=== PATIENT | male | born 1945 | race Caucasian/White ===

== ENCOUNTER 2018-11-20 13:57 | Inpatient (IN) | payer MEDICARE, OTHER ==
[2018-11-20] MEDS ORDERED: HYDROmorphone 0.5 MG/0.5 ML Syringe IVPUSH ONE ×2 (14:41→15:31)
[2018-11-20] MEDS ORDERED: Ondansetron 4 MG/2 ML SDV IVPUSH ONE (14:41)
[2018-11-20] MEDS ORDERED: Sodium Chloride 0.9% 1,000 ML IV SCH (14:45)
--- NOTE | 2018-11-20 14:51 | EDM.PDOC ---
ED HPI GENERAL MEDICAL PROBLEM - General Chief Complaint: Gastrointestinal Problem Stated Complaint: BOWEL PROBLEM Time Seen by Provider: 11/20/18 14:30 Source of Information: Reports: Patient History Limitations: Reports: No Limitations - History of Present Illness INITIAL COMMENTS - FREE TEXT/NARRATIVE: 72-year-old male who has had lower abdominal pain, nausea and vomiting for the past 3 days. He went into the clinic on Saturday and had x-rays, reassured but he is much worse over the past 24 hours. Today he has intense pain, was unable to drive and had a neighbor bring him in. His pain is lower abdominal, worse with movement and he is unable to get comfortable. Denies any dysuria. Also some persistent nausea and vomiting. I reviewed his clinic records, he did have a fever when he was in 2 days ago, he now has chills and malaise. Onset: Gradual Duration: Day(s): (3-4 days of symptoms) Location: Reports: Abdomen Associated Symptoms: Reports: Fever/Chills, Loss of Appetite, Malaise, Nausea/ Vomiting, Other (Loose stools) Abdominal Pain Score (Numeric/FACES): 10 - Related Data Allergies Allergy/AdvReac Type Severity Reaction Status Date / Time ciprofloxacin [From Cipro] Allergy Other Verified 11/20/18 14:18 levofloxacin Allergy Other Verified 11/20/18 14:18 Home Meds: Home Meds Atenolol 100 mg PO DAILY 12/03/17 [History] atorvaSTATin [Lipitor] 100 mg PO BEDTIME 12/03/17 [History] Folic Acid 1 mg PO DAILY 11/18/18 [History] Methotrexate Sodium [Methotrexate] 10 mg PO ASDIRECTED 11/18/18 [History] predniSONE [Prednisone] 5 mg PO DAILY 11/18/18 [History] Past Medical History HEENT History: Reports: Hard of Hearing Cardiovascular History: Reports: Hypertension Musculoskeletal History: Reports: Arthritis Psychiatric History: Reports: None Endocrine/Metabolic History: Reports: None Immunologic History: Reports: None Oncologic (Cancer) History: Reports: Prostate - Past Surgical History Cardiovascular Surgical History: Reports: None Endocrine Surgical History: Reports: Thyroidectomy Neurological Surgical History: Reports: Lumbar Spine Musculoskeletal Surgical History: Reports: Shoulder Surgery Social & Family History - Tobacco Use Smoking Status *Q: Never Smoker Second Hand Smoke Exposure: No - Caffeine Use Caffeine Use: Reports: Coffee - Recreational Drug Use Recreational Drug Use: No ED ROS GENERAL - Review of Systems Review Of Systems: See Below Constitutional: Reports: Fever, Chills, Malaise, Decreased Appetite HEENT: Reports: No Symptoms Respiratory: Denies: Shortness of Breath Cardiovascular: Denies: Chest Pain, Palpitations GI/Abdominal: Reports: Abdominal Pain, Diarrhea, Decreased Appetite, Nausea, Vomiting : Reports: No Symptoms Skin: Reports: No Symptoms Neurological: Denies: Headache Psychiatric: Denies: Anxiety ED EXAM, GI/ABD - Physical Exam Exam: See Below Exam Limited By: No Limitations General Appearance: Alert, Moderate Distress (Very uncomfortable, lying on his right side with his hips flexed and holding his abdomen) Eyes: Bilateral: Normal Appearance (No jaundice) Respiratory/Chest: No Respiratory Distress, Lungs Clear Cardiovascular: Regular Rate, Rhythm. No: Tachycardia GI/Abdominal Exam: Other (Very tender across the lower abdomen with guarding and rebound tenderness especially in the left lower quadrant) Extremities: Normal Inspection Neurological: Alert, Oriented Psychiatric: Anxious Skin Exam: Warm, Dry Course - Vital Signs Last Recorded V/S: Last Vital Signs Temp 96.0 F 11/21/18 04:00 Pulse 76 11/21/18 05:59 Resp 23 H 11/21/18 05:59 BP 115/80 11/21/18 05:59 Pulse Ox 97 11/21/18 05:59 - Orders/Labs/Meds Orders: Active Orders 24 hr Category Date Time Status Ambulate [RC] ASDIRECTED Care 11/20/18 18:56 Active Dorsiflex/Plantar flex x 10 [RC] QSHIFT Care 11/20/18 18:56 Active Drain Management [RC] Q6H Care 11/20/18 18:56 Active Head of Bed Elevation [RC] Q1HWA Care 11/20/18 18:56 Active Intake and Output [RC] Q2H Care 11/20/18 18:56 Active Notify Provider [RC] PRN Care 11/20/18 18:56 Active Oxygen Therapy [RC] ASDIRECTED Care 11/20/18 18:56 Active Pneumonia Education [RC] UPON Care 11/20/18 18:56 Active RT Aerosol Therapy [RC] ASDIRECTED Care 11/20/18 19:00 Active RT Incentive Spirometry [RC] Q1HWA Care 11/20/18 18:56 Active Turn, Cough, Deep Breathe [RC] Q1HWA Care 11/20/18 18:56 Active Up to Chair [RC] TIDMEALS Care 11/20/18 18:56 Active Vital Signs [RC] Q2H Care 11/20/18 18:56 Active Respiratory Care Assess and Treatment [CONS] Routine Cons 11/20/18 18:56 Active Full Liquid Diet [DIET] Diet 11/20/18 Breakfast Ordered CLOSTRIDIUM DIFFICILE BY PCR [RM] Stat Lab 11/20/18 15:08 Results CULTURE ANAEROBIC [RM] Routine Lab 11/20/18 18:49 Received CULTURE STOOL + SHIGATOX [RM] Stat Lab 11/20/18 15:08 Results CULTURE WOUND + SMEAR [RM] Routine Lab 11/20/18 18:49 Results OVA + PARASITE EXAM Stat Lab 11/20/18 15:07 Received Albuterol/Ipratropium [DuoNeb 3.0-0.5 MG/3 ML] Med 11/20/18 18:56 Active 3 ml NEB Q6H PRN Alvimopan [Entereg] Med 11/20/18 20:00 Active 12 mg PO Q12H Celecoxib [CeleBREX] Med 11/20/18 19:00 Active 200 mg PO DAILY Enoxaparin [Lovenox] Med 11/21/18 09:00 Active 40 mg SUBCUT Q12H Gabapentin [Neurontin] Med 11/20/18 21:00 Active 300 mg PO TID Ondansetron [Zofran ODT] Med 11/20/18 18:56 Active 4 mg PO Q6H PRN diphenhydrAMINE [Benadryl] Med 11/20/18 18:56 Active 25 mg IVPUSH Q4H PRN Abdominal Binder [OM.PC] Routine Oth 11/20/18 18:56 Ordered Isolation [COMM] Stat Oth 11/20/18 15:04 Ordered Oral Care [OM.PC] BID Oth 11/20/18 19:00 Ordered Oral Care [OM.PC] BID Oth 11/21/18 19:00 Ordered Sequential Compression Device [OM.PC] Routine Oth 11/20/18 18:56 Ordered Specialty Bed [OM.PC] Routine Oth 11/20/18 18:56 Ordered Resuscitation Status Routine Resus Stat 11/20/18 18:56 Ordered Medication Orders Albuterol/Ipratropium (Duoneb 3.0-0.5 Mg/3 Ml) 3 ml NEB Q6H PRN PRN Reason: Wheezing Alvimopan (Entereg) 12 mg PO Q12H [facility] Stop: 11/27/18 08:01 Last Admin: 11/20/18 21:18 Dose: 12 mg Celecoxib (Celebrex) 200 mg PO DAILY [facility] Last Admin: 11/20/18 21:17 Dose: 200 mg Diphenhydramine HCl (Benadryl) 25 mg IVPUSH Q4H PRN PRN Reason: Nausea Enoxaparin Sodium (Lovenox) 40 mg SUBCUT Q12H [facility] Fentanyl Citrate (Fentanyl In Ns 20 Mcg/Ml 30 Ml [employer]) 0 mcg IV ASDIRECTED PRN; Protocol PRN Reason: Pain Last Admin: 11/20/18 20:33 Dose: 600 mcg Gabapentin (Neurontin) 300 mg PO TID [facility] Last Admin: 11/20/18 21:18 Dose: 300 mg Sodium Chloride (Normal Saline) 1,000 mls @ 125 mls/hr IV ASDIRECTED [facility] Last Admin: 11/21/18 00:41 Dose: 125 mls/hr Sodium Chloride (Normal Saline) 1,000 mls @ 250 mls/hr IV ASDIRECTED PRN PRN Reason: urine output <50 mls over 2 hr Last Admin: 11/21/18 05:50 Dose: 250 mls/hr Infusion: 11/21/18 05:50 Dose: 250 mls/hr Admin: 11/21/18 02:58 Dose: 250 mls/hr Infusion: 11/21/18 02:58 Dose: 250 mls/hr Admin: 11/21/18 01:03 Dose: 250 mls/hr Infusion: 11/21/18 01:03 Dose: 250 mls/hr Admin: 11/20/18 22:42 Dose: 250 mls/hr Infusion: 11/20/18 22:42 Dose: 250 mls/hr Admin: 11/20/18 21:40 Dose: 250 mls/hr Piperacillin/Tazobactam/ (Dextrose 3.375 gm/ Premix) 50 mls @ 100 mls/hr IV Q6H [facility] Naloxone HCl (Narcan) 0.1 mg IV ASDIRECTED PRN PRN Reason: decreased respiratory rate Scopolamine Patch (Check) 1 each TOP DAILY CARLY Ondansetron HCl (Zofran Odt) 4 mg PO Q6H PRN PRN Reason: Nausea/Vomiting Labs: Laboratory Tests 11/20/18 11/20/18 11/20/18 Range/Units 14:41 14:41 14:41 WBC 14.0 H (4.5-11.0) K/uL RBC 4.13 L (4.30-5.90) M/uL Hgb 13.6 (12.0-15.0) g/dL Hct 39.6 L (40.0-54.0) % MCV 96 (80-98) fL MCH 33 H (27-31) pg MCHC 34 (32-36) % Plt Count 260 (150-400) K/uL Neut % (Auto) 89 H (36-66) % Lymph % (Auto) 5 L (24-44) % Lucas % (Auto) 5 (2-6) % Eos % (Auto) 0 L (2-4) % Baso % (Auto) 0 (0-1) % Sodium 137 L (140-148) mmol/L Potassium 3.1 L (3.6-5.2) mmol/L Chloride 100 (100-108) mmol/L Carbon Dioxide 22 (21-32) mmol/L Anion Gap 18.1 H (5.0-14.0) mmol/L BUN 13 (7-18) mg/dL Creatinine 1.3 (0.8-1.3) mg/dL Est Cr Clr Drug Dosing 49.85 mL/min Estimated GFR (MDRD) 54 L (>60) Glucose 164 H (74-106) mg/dL Lactic Acid 2.6 H (0.4-2.0) mmol/L Calcium 8.6 (8.5-10.1) mg/dL Total Bilirubin 1.2 H (0.2-1.0) mg/dL AST 20 (15-37) U/L ALT 21 (12-78) U/L Alkaline Phosphatase 79 (46-116) U/L Total Protein 6.3 L (6.4-8.2) g/dL Albumin 2.7 L (3.4-5.0) g/dL Globulin 3.6 H (2.3-3.5) g/dL Albumin/Globulin Ratio 0.8 L (1.2-2.2) Meds: Medications Generic Name Dose Route Start Last Admin Trade Name Freq PRN Reason Stop Dose Admin Albuterol/Ipratropium 3 ml 11/20/18 18:56 Duoneb 3.0-0.5 Mg/3 Ml NEB Q6H PRN Wheezing Alvimopan 12 mg 11/20/18 20:00 11/20/18 21:18 Entereg PO 11/27/18 08:01 12 mg Q12H CARLY Administration Celecoxib 200 mg 11/20/18 19:00 11/20/18 21:17 Celebrex PO 200 mg DAILY CARLY Administration Diphenhydramine HCl 25 mg 11/20/18 18:56 Benadryl IVPUSH Q4H PRN Nausea Enoxaparin Sodium 40 mg 11/21/18 09:00 Lovenox SUBCUT Q12H CARLY Fentanyl Citrate 0 mcg 11/20/18 20:12 11/20/18 20:33 Fentanyl In Ns 20 Mcg/Ml 30 Ml [employer] IV 600 mcg ASDIRECTED PRN Administration Pain Protocol Gabapentin 300 mg 11/20/18 21:00 11/20/18 21:18 Neurontin PO 300 mg TID CARLY Administration Sodium Chloride 1,000 mls @ 125 mls/hr 11/20/18 20:15 11/21/18 00:41 Normal Saline IV 125 mls/hr ASDIRECTED CARLY Administration Sodium Chloride 1,000 mls @ 250 mls/hr 11/20/18 21:30 11/21/18 05:50 Normal Saline IV 250 mls/hr ASDIRECTED PRN Administration urine output <50 mls over 2 hr Piperacillin/Tazobactam/ 50 mls @ 100 mls/hr 11/21/18 08:00 Dextrose 3.375 gm/ Premix IV Q6H CARLY Naloxone HCl 0.1 mg 11/20/18 20:12 Narcan IV ASDIRECTED PRN decreased respiratory rate Scopolamine Patch 1 each 11/21/18 09:00 Check TOP DAILY CARLY Ondansetron HCl 4 mg 11/20/18 18:56 Zofran Odt PO Q6H PRN Nausea/Vomiting Discontinued Medications Generic Name Dose Route Start Last Admin Trade Name Jossq PRN Reason Stop Dose Admin Ropivacaine 36 ml/ 0 ml 11/20/18 17:00 11/20/18 17:30 Dexamethasone 8 mg/ NERVRT 80 syringe Epinephrine HCl 0.4 mg/ Sodium ASDIRECTED CARLY Administration Chloride 41.6 ml Dexamethasone Confirm 11/20/18 16:53 Dexamethasone Administered 11/20/18 16:54 Dose 4 mg .ROUTE .STK-MED ONE Fentanyl Confirm 11/20/18 16:54 Sublimaze Administered 11/20/18 16:55 Dose 250 mcg .ROUTE .STK-MED ONE Fentanyl Confirm 11/20/18 19:06 Sublimaze Administered 11/20/18 19:07 Dose 100 mcg .ROUTE .STK-MED ONE Glycopyrrolate Confirm 11/20/18 16:53 Robinul Administered 11/20/18 16:54 Dose 1 mg .ROUTE .STK-MED ONE Hydromorphone HCl 0.5 mg 11/20/18 14:41 11/20/18 14:59 Dilaudid IVPUSH 11/20/18 14:42 0.5 mg ONETIME ONE Administration Hydromorphone HCl 0.5 mg 11/20/18 15:31 11/20/18 15:36 Dilaudid IVPUSH 11/20/18 15:32 0.5 mg ONETIME ONE Administration Sodium Chloride 1,000 mls @ 1,000 mls/hr 11/20/18 14:45 11/20/18 15:00 Normal Saline IV 1,000 mls/hr ASDIRECTED CARLY Administration Ertapenem 1 gm/ Sodium 100 mls @ 200 mls/hr 11/20/18 15:45 11/20/18 15:51 Chloride IV 11/20/18 16:14 200 mls/hr ONETIME ONE Administration Sodium Chloride Confirm 11/20/18 17:55 Normal Saline Administered 11/20/18 17:56 Dose 10 mls @ as directed .ROUTE .STK-MED ONE Lactated Ringer's Confirm 11/20/18 17:57 Ringers, Lactated Administered 11/20/18 17:58 Dose 1,000 mls @ as directed .ROUTE .STK-MED ONE Piperacillin Sod/Tazobactam 50 mls @ 100 mls/hr 11/20/18 20:00 11/21/18 02:01 Sod 3.375 gm/ Sodium Chloride IV 100 mls/hr Q6H CARLY Administration Ketorolac Tromethamine Confirm 11/20/18 18:56 Toradol Administered 11/20/18 18:57 Dose 60 mg .ROUTE .STK-MED ONE Meropenem Confirm 11/20/18 17:55 Merrem Administered 11/20/18 17:56 Dose 500 mg .ROUTE .STK-MED ONE Neostigmine Methylsulfate Confirm 11/20/18 16:53 Neostigmine Administered 11/20/18 16:54 Dose 5 mg .ROUTE .STK-MED ONE Ondansetron HCl 4 mg 11/20/18 14:41 11/20/18 14:58 Zofran IVPUSH 11/20/18 14:42 4 mg ONETIME ONE Administration Ondansetron HCl Confirm 11/20/18 16:53 Zofran Administered 11/20/18 16:54 Dose 4 mg .ROUTE .STK-MED ONE Propofol Confirm 11/20/18 16:53 Diprivan 20 Ml Administered 11/20/18 16:54 Dose 200 mg .ROUTE .STK-MED ONE Rocuronium [place] Confirm 11/20/18 16:53 Zemuron Administered 11/20/18 16:54 Dose 50 mg .ROUTE .STK-MED ONE Rocuronium [place] Confirm 11/20/18 18:10 Zemuron Administered 11/20/18 18:11 Dose 50 mg .ROUTE .STK-MED ONE Scopolamine 1.5 mg 11/20/18 18:56 11/20/18 20:05 Transderm-Scop TOP 11/20/18 18:57 1.5 mg ONETIME ONE Administration Succinylcholine Chloride Confirm 11/20/18 16:53 Quelicin Administered 11/20/18 16:54 Dose 200 mg .ROUTE .STK-MED ONE - Re-Assessments/Exams Free Text/Narrative Re-Assessment/Exam: 11/20/18 14:50 An IV was started, patient will be hydrated with normal saline and a CBC CMP and lactic acid were obtained. This patient will need a CT of the abdomen to rule out diverticulitis or appendicitis. 11/20/18 16:26 White count was elevated, lactic acid mildly elevated and the CT the abdomen revealed a likely perforated diverticulitis. Surgery was consulted, Dr. Kay kindly came and saw the patient and will assess him for surgical excoriation. 1 g of Invanz was given IV. He also needed 2 doses of Dilaudid and 4 mg of IV Zofran for symptom control. Departure - Departure Time of Disposition: 17:00 Disposition: Admitted As Inpatient 64 Clinical Impression: Perforation of sigmoid colon due to diverticulitis - Discharge Information - My Orders Last 24 Hours: My Active Orders 11/20/18 15:04 Isolation [COMM] Stat 11/20/18 15:07 OVA + PARASITE EXAM Stat 11/20/18 15:08 CLOSTRIDIUM DIFFICILE BY PCR [RM] Stat CULTURE STOOL + SHIGATOX [RM] Stat - Assessment/Plan Last 24 Hours: My Active Orders 11/20/18 15:04 Isolation [COMM] Stat 11/20/18 15:07 OVA + PARASITE EXAM Stat 11/20/18 15:08 CLOSTRIDIUM DIFFICILE BY PCR [RM] Stat CULTURE STOOL + SHIGATOX [RM] Stat
[2018-11-20] MEDS ORDERED: Ertapenem 1 GM in Sodium Chloride 0.9% 100 ML IV ONE ×5 (15:30→15:45)
--- NOTE | 2018-11-20 15:58 | CRLCT ---
INDICATION: Severe lower abdominal pain TECHNIQUE: CT abdomen and pelvis without contrast. COMPARISON: None. FINDINGS: Lower chest: Unremarkable. Liver: Normal in size and attenuation. No masses. Gallbladder and bile ducts: No stones or inflammation. No biliary dilatation. Pancreas: Unremarkable. No mass or inflammation. Spleen: Normal in size. No masses. Adrenal glands: Normal in size. No nodules. Kidneys: Multiple small nonobstructive stones are present in each kidney. No hydronephrosis. GI tract: There is wall thickening and inflammation throughout the sigmoid colon with a relatively large amount of adjacent free air. Remainder of the GI tract is unremarkable. Normal appendix. Vasculature: Unremarkable. Lymph nodes: No lymphadenopathy. Abdominal wall/Omentum/Peritoneum: No mass or fluid collection. Pelvis: Status post prostatectomy. Unremarkable urinary bladder. Bones: Unremarkable for age. IMPRESSION: 1. Marked wall thickening and inflammation of the sigmoid colon with a large amount of free air. Perforated acute diverticulitis is suspected. No abscess. 2. Bilateral nonobstructive nephrolithiasis. Dictated by Austin Goldberg MD @ 11/20/2018 3:57:37 PM Please note that all CT scans at this facility use dose modulation, iterative reconstruction, and/or weight-based dosing when appropriate to reduce radiation dose to as low as reasonably achievable. Dictated by: Austin Goldberg MD @ 11/20/2018 15:57:43 (Electronically Signed)
[2018-11-20] MEDS ORDERED: Succinylcholine 200 MG/10 ML MDV ONE (16:53)
[2018-11-20] MEDS ORDERED: Ondansetron 4 MG/2 ML SDV ONE (16:53)
[2018-11-20] MEDS ORDERED: Rocuronium 50 MG/5 ML Vial ONE ×2 (16:53→18:10)
[2018-11-20] MEDS ORDERED: Glycopyrrolate 0.2 MG/ML 5 ML MDV ONE (16:53)
[2018-11-20] MEDS ORDERED: Dexamethasone 4 MG/ML SDV ONE (16:53)
[2018-11-20] MEDS ORDERED: Propofol 200 MG/20 ML SDV ONE (16:53)
[2018-11-20] MEDS ORDERED: Neostigmine Methylsulfate 1 MG/ML 5 ML Syringe ONE (16:53)
[2018-11-20] MEDS ORDERED: fentaNYL 250 MCG/5 ML SDV ONE (16:54)
[2018-11-20] MEDS ORDERED: Ropivacaine 36 ML, dexAMETHasone 8 MG, EPINEPHrine 0.4 MG, Sodium Chloride 0.9% 41.6 ML NERVRT SCH ×4 (17:00)
[2018-11-20] MEDS ORDERED: Sodium Chloride 0.9% 10 ML ONE (17:55)
[2018-11-20] MEDS ORDERED: Meropenem 500 MG SDV ONE (17:55)
[2018-11-20] MEDS ORDERED: Lactated Ringers 1,000 ML ONE (17:57)
[2018-11-20] MEDS ORDERED: Ketorolac 60 MG/2 ML SDV ONE (18:56)
[2018-11-20] MEDS ORDERED: Albuterol/Ipratropium 3.0-0.5 MG/3 ML Neb Soln NEB PRN (18:56)
[2018-11-20] MEDS ORDERED: Scopolamine 1.5 MG Transdermal Patch TOP ONE (18:56)
[2018-11-20] MEDS ORDERED: diphenhydrAMINE 50 MG/ML SDV IVPUSH PRN (18:56)
[2018-11-20] MEDS ORDERED: fentaNYL 100 MCG/2 ML SDV ONE (19:06)
[2018-11-20] MEDS ORDERED: Naloxone 0.4 MG/ML SDV IV PRN (20:12)
[2018-11-20] MEDS ORDERED: fentaNYL/Normal Saline 600 MCG/30 ML PCA Vial IV PRN (20:12)
[2018-11-20] MEDS: Celecoxib 200 MG Cap PO SCH (21:17)
[2018-11-20] MEDS: Piperacillin/Tazobactam 3.375 GM in Sodium Chloride 0.9% 50 ML IV SCH (21:18)
[2018-11-20] MEDS: Gabapentin 300 MG Cap PO SCH (21:18)
[2018-11-20] MEDS: Sodium Chloride 0.9% 1,000 ML IV PRN ×2 (21:40→22:42)
[2018-11-21] MEDS: Sodium Chloride 0.9% 1,000 ML IV SCH ×3 (00:41→18:40)
[2018-11-21] MEDS: Sodium Chloride 0.9% 1,000 ML IV PRN ×3 (01:03→05:50)
[2018-11-21] MEDS: Piperacillin/Tazobactam 3.375 GM in Sodium Chloride 0.9% 50 ML IV SCH (02:01)
[2018-11-21] MEDS: Piperacillin/Tazobactam/Dext 3.375 GM in Premix Bag 1 BAG IV SCH ×3 (08:27→20:07)
[2018-11-21] MEDS: Celecoxib 200 MG Cap PO SCH (08:27)
[2018-11-21] MEDS: Gabapentin 300 MG Cap PO SCH ×3 (08:27→20:07)
[2018-11-21] MEDS: Enoxaparin 40 MG/0.4 ML Syringe SUBCUT SCH ×2 (08:28→20:07)
[2018-11-21] MEDS: SCOPOLAMINE PATCH CHECK TOP SCH (08:29)
--- NOTE | 2018-11-21 10:44 | PN ---
DATE OF SERVICE: 11/21/2018 SUBJECTIVE: The patient is doing much better this morning. He is mentally alert. He is oriented x3. No activity from the ostomy yet. OBJECTIVE: VITAL SIGNS: Vital signs are stable. CARDIOVASCULAR: Regular rhythm and rate. RESPIRATORY: Lungs are clear to auscultation bilaterally. ABDOMEN: Wound VAC is intact. ASSESSMENT AND PLAN: Status post diverticulitis. PLAN: 1. Infectious Disease. We will continue the Zosyn antibiotic as he has responded quite well to these. 2. Genitourinary. His creatinine is normal. He did require some fluid bolus within the night. We will restart these today. 3. Prophylaxis. The patient is on Lovenox and SCDs. 4. Diet. He is on basically a clear to full liquid diet, advancing as tolerated small meals but continue p.o. intake. 5. Pain control. His pain is well controlled with his current plan of [employer] in conjunction with NSAIDs. 6. ICU status. The patient is doing quite well. He will be transferred out of the ICU today. Imtiaz Kay MD /[id number]
--- NOTE | 2018-11-21 12:14 | OR ---
DATE OF PROCEDURE: 11/20/2018 PROCEDURE: 1. Elly and gross bacterial peritonitis (01465). 2. Eros procedure (12961). 3. Wound VAC placement (44550). 4. Placement of pelvic Vicryl mesh. FINDINGS: Modified Hinchey class 4 perforation with free air and gross stool noted throughout abdomen. COMPLICATIONS: None. REFERENCE ASSISTANT: None. ANESTHESIA: General. RISKS: Risks, benefits, alternatives, and limitations including, but not limited to infection, bleeding, and requirement for ostomy were explained to the patient. Due to the patient's possible altered mental status, this was also explained to the via a phone consent. The patient and I discussed current management of peritonitis. Because the patient has very significant peritoneal signs, change in his mental status, rebound, guarding, and free air noted on CT scan. The best course would be exploratory laparotomy with probable sigmoid colon resection. I did discuss with the patient and the the current management, which may include an ostomy, primary anastomosis, Eros procedure, protective ileostomy, and other options not listed here. This would be dependent upon the findings. We also discussed general surgery risks such as previously mentioned infection, bleeding, injury to vascular structures, injury to the ureters, the possibility of leaks, abscess formation, reoperation, delayed primary closure, heart attack, strokes, and other risks not listed here. The patient and understands and wished to proceed. DESCRIPTION OF PROCEDURE: The patient was placed in a supine position. A midline abdominal incision was made through the previous prostate resection surgery incision. Two Kochers were used to elevate the abdomen. The abdomen entered sharply. No evidence of enterotomy or injury was noted. However, gross elly stool was noted immediately upon entry. The incision was opened further. The large amount of stool was able to be suctioned and irrigated, and removing it. During this procedure, a total of approximately 8 L of warm normal saline mixed with meropenem was used to thoroughly irrigate the abdomen. The sigmoid colon with the evident locations of perforation, which was consistent with perforated diverticulitis. There was a large amount of stool noted. This was able to be scooped from the abdomen. The sigmoid colon would be resected at approximately the flexure/junction of the descending and sigmoid colon, which was an area free of gross disease. This was transected using a norman load stapler. White load staplers were used to transect the bowel. The patient did have significant inflammation in both the mesentery and associated with the sigmoid colon. Careful attention was made to stay on the colon due to concern for ureteral injury. However, due to the gross inflammation and staining with stool throughout the sigmoid and pelvis area, ureters were not identified due to this might increased risk of iatrogenic injury. The norman load staplers continued down the sigmoid. The rectum was able to be transected, where there was an area of limited to no gross disease. This was transected with curvilinear black staplers x2. A single Prolene stitch was placed on the rectal stump to facilitate for later identification. The sigmoid colon was then further mobilized. Further irrigation would then be completed. Irrigation was also performed up around the splenic flexure behind the spleen and behind the liver. Prior to the procedure, an ostomy location, primary and secondary had been marked. This was placed on the left as the primary site even though the prostate surgery incision had moved from an obtuse angle to the left. Nonetheless, this would create the most tensionless ostomy and improved connection at a later date. Once an approximately 50-cent piece of skin was removed, this was bluntly dissected to the rectus muscles. A Tatum was used to hold the end colostomy through this without difficulty. Two drains were placed, 1 in the pelvis, 1 in the area of the liver. The fascia was then closed with #1 Vicryl in a running fashion x2. The subcutaneous skin was thoroughly irrigated. Of note, prior to this, Interceed mesh was placed around the rectal stump in the pelvis. The wound VAC was then placed in the skin in standard fashion. Suction was applied without difficulty. Once the wound VAC was on, the colostomy was procured. This was created with interrupted Vicryl sutures with approximately 1 to 1.5 cm of colon protruding from the skin level. Of note, the colostomy was procured in a way that as it pulled through the intestinal wall, careful attention was made not to twist the mesentery. The patient tolerated the procedure well. Imtiaz Kay MD /[id number]
[2018-11-22] MEDS: Piperacillin/Tazobactam/Dext 3.375 GM in Premix Bag 1 BAG IV SCH ×4 (01:09→20:01)
[2018-11-22] MEDS ORDERED: Bupivacaine 0.5% 50 ML MDV ONE (08:11)
[2018-11-22] MEDS ORDERED: Lidocaine 1% with EPINEPHrine 1:100,000 50 ML MDV ONE (08:11)
[2018-11-22] MEDS: Gabapentin 300 MG Cap PO SCH ×3 (09:00→20:01)
[2018-11-22] MEDS ORDERED: Ropivacaine 36 ML, dexAMETHasone 8 MG, EPINEPHrine 0.4 MG, Sodium Chloride 0.9% 41.6 ML NERVRT SCH ×4 (09:30)
[2018-11-22] MEDS ORDERED: fentaNYL 100 MCG/2 ML SDV ONE (09:50)
[2018-11-22] MEDS ORDERED: Propofol 200 MG/20 ML SDV ONE (09:50)
[2018-11-22] MEDS: Sodium Chloride 0.9% 1,000 ML IV SCH (11:04)
[2018-11-22] MEDS: SCOPOLAMINE PATCH CHECK TOP SCH (11:05)
[2018-11-22] MEDS ORDERED: Meloxicam 7.5 MG Tab PO SCH (12:00)
[2018-11-22] MEDS: Enoxaparin 40 MG/0.4 ML Syringe SUBCUT SCH ×2 (12:31→20:01)
[2018-11-22] MEDS: Celecoxib 200 MG Cap PO SCH (12:31)
[2018-11-22] MEDS: Acetaminophen/HYDROcodone 325-5 MG Tab PO PRN (23:50)
[2018-11-23] MEDS: Piperacillin/Tazobactam/Dext 3.375 GM in Premix Bag 1 BAG IV SCH ×4 (02:25→20:12)
[2018-11-23] MEDS: Gabapentin 300 MG Cap PO SCH ×3 (09:19→20:12)
[2018-11-23] MEDS: Enoxaparin 40 MG/0.4 ML Syringe SUBCUT SCH ×2 (09:19→20:12)
[2018-11-23] MEDS: Celecoxib 200 MG Cap PO SCH (09:19)
[2018-11-23] MEDS: SCOPOLAMINE PATCH CHECK TOP SCH (09:20)
[2018-11-23] MEDS: Acetaminophen/HYDROcodone 325-5 MG Tab PO PRN ×2 (09:21→20:22)
--- NOTE | 2018-11-23 11:25 | PN ---
DATE OF SERVICE: 11/23/2018 SUBJECTIVE: The patient doing very well. Pain is well controlled. No nausea, vomiting, shortness of breath, or chest pain. OBJECTIVE: VITAL SIGNS: Stable. CARDIOVASCULAR: Regular rhythm and rate. RESPIRATORY: Lungs are clear to auscultation bilaterally. Incision healing well. ASSESSMENT: Status post colostomy. PLAN: We will allow him to shower today. I will advance his diet as tolerated. If he continues to do well, discharge probably tomorrow jacky Kay MD /[id number]
[2018-11-24] MEDS: Acetaminophen/HYDROcodone 325-5 MG Tab PO PRN ×4 (00:36→20:41)
[2018-11-24] MEDS: Piperacillin/Tazobactam/Dext 3.375 GM in Premix Bag 1 BAG IV SCH ×4 (01:59→20:34)
[2018-11-24] MEDS: Enoxaparin 40 MG/0.4 ML Syringe SUBCUT SCH ×2 (08:00→20:37)
[2018-11-24] MEDS: Gabapentin 300 MG Cap PO SCH ×3 (08:00→20:37)
[2018-11-24] MEDS: Celecoxib 200 MG Cap PO SCH (08:00)
[2018-11-24] MEDS: Morphine 2 MG/ML Syringe IVPUSH PRN ×6 (08:49→23:28)
--- NOTE | 2018-11-24 09:35 | CONS ---
DATE OF SERVICE: 11/20/2018 REFERRING PHYSICIAN: CONSULTING PHYSICIAN: Imtiaz Kay MD REASON FOR CONSULTATION: Evaluation of abdominal pain. HISTORY OF PRESENT ILLNESS: This is a pleasant gentleman who has been seen in the clinic previously with concerns of constipation. He presents today with fever, chills, nausea, and significant abdominal pain. This has been present for approximately 5 days, modified by position. PAST MEDICAL HISTORY: Hypertension, arthritis, hard of hearing, history of prostate cancer requiring resection, multiple orthopedic issues, such shoulder and back issues. PAST SURGICAL HISTORY: 1. Prostate resection, open. 2. Thyroidectomy. 3. Lumbar surgery. 4. Shoulder surgery. SOCIAL HISTORY: Does not smoke. FAMILY HISTORY: Noncontributory. REVIEW OF SYSTEMS: GENERAL: The patient is lethargic. HEENT: No significant symptoms. GENITOURINARY: No recent dysuria. GASTROINTESTINAL: As above. NEUROLOGICAL: No seizures or depression. The remainder of the review of systems is reviewed and is negative. PHYSICAL EXAMINATION: VITAL SIGNS: . GENERAL: The patient is not resting comfortably. He has abdominal guarding. HEENT: Pupils are equal. NECK: Supple. LUNGS: Clear. CARDIOVASCULAR: Regular rhythm and rate. ABDOMEN: Pain with palpation. Positive rebound. Positive guarding. EXTREMITIES: Moves. Full range of motion. Strength is 4/4. NEUROLOGICAL: The patient is oriented, but he is mildly confused with respect to complete comprehension. IMAGING: CT scan I did review, which shows abdominal free air. ASSESSMENT: Perforated diverticulitis. PLAN: The patient will be taken to the operating room for exploratory laparotomy. Based upon current standards and his Hinchey classification, the patient will undergo primary resection versus ostomy versus 3 stage type procedures. This will depend on the findings in the operating room. His current situation was explained to both him and his . A verbal phone consent was obtained in conjunction with the operating room nurse. The patient understands these risks and wished to proceed. We also discussed the general risks of surgery. General risks of surgery were also explained to him including, but not limited to infection, bleeding, stroke, cardiovascular compromise, other possibility of sepsis, and other risks not listed here. The patient and understand these risks and wished to proceed. Imtiaz Kay MD /[id number]
--- NOTE | 2018-11-24 09:38 | OR ---
DATE OF PROCEDURE: 11/22/2018 SURGEON: Imtiaz Kay MD PROCEDURE: Delayed primary closure. COMPLICATIONS: None. ROLL FORMING MACHINE SET UP OPERATOR: None. ANESTHESIA: MAC. INDICATIONS: This is a pleasant 72-year-old male, who underwent emergency surgery for diverticulitis requiring closure, due to gross elly stool in the abdomen. PROCEDURE IN DETAIL: The patient was placed in the supine position. The abdomen was prepped and draped. Incision was inspected. No evidence of incisional hernia or failure. There was thick granulation tissue. This was thoroughly irrigated and subsequently closed with bárbara. The patient tolerated the procedure well. Imtiaz Kay MD /[id number]
--- NOTE | 2018-11-24 09:42 | OR ---
DATE OF PROCEDURE: 11/20/2018 SURGEON: Imtiaz Kay MD PROCEDURE: Transversus abdominis plane block. COMPLICATIONS: None. ELECTROMECHANICAL ASSEMBLY TECHNICIAN: None. RISKS: Risks, benefits, alternatives, and limitations including, but not limited to infection, bleeding, and injury to abdominal structures were explained to the patient, who wished to proceed. PROCEDURE IN DETAIL: The patient was placed in supine position. The abdomen was prepped and draped. The right side was addressed first. This was accessed using 11 megahertz ultrasound probe. The full amount was injected with no problems afterward. The left side was then performed in same manner, same fashion, same technique, in the same sequence, and using the same equipment, except for different needle and syringe. The patient tolerated the procedure well. Imtiza Kay MD /[id number]
--- NOTE | 2018-11-24 10:54 | PN ---
DATE OF SERVICE: 11/24/2018 SUBJECTIVE: The patient is doing well today, except for some left lower quadrant abdominal pain. This is not associated with any nausea or vomiting. The patient notes meal yesterday. OBJECTIVE: VITAL SIGNS: Stable. CARDIOVASCULAR: Regular rhythm and rate. RESPIRATORY: Lungs are clear to auscultation bilaterally. ABDOMEN: Bowel sounds are positive. ASSESSMENT AND PLAN: Status post diverticulitis, colostomy. We will order a CBC today. We will continue with CV diet. We will also check a UA and if he continues to have this abdominal pain further today, we will order a CT scan to evaluate for abscess or any abnormality. Imtiaz Kay MD /[id number]
[2018-11-24] MEDS ORDERED: Iohexol 300 MG/ML 30 ML Bottle PO ONE (13:34)
[2018-11-24] MEDS: SCOPOLAMINE PATCH CHECK TOP SCH (13:36)
--- NOTE | 2018-11-24 16:37 | CRLCT ---
INDICATION: Abdominal pain TECHNIQUE: CT abdomen and pelvis without contrast. COMPARISON: Abdomen and pelvis CT 11/20/2018 FINDINGS: Lower chest: There are small bilateral pleural effusions with dependent atelectasis within the lung bases. There is mild coronary atherosclerosis. Liver: Normal in size and attenuation. No masses. Gallbladder and bile ducts: No stones or inflammation. No biliary dilatation. Pancreas: Unremarkable. No mass or inflammation. Spleen: Normal in size. No masses. Adrenal glands: Normal in size. No nodules. Kidneys: There are bilateral nonobstructing stones without evidence of hydronephrosis. GI tract: The patient is status post interval surgery with skin bárbara in the midline are new left lower quadrant colostomy Jasper-Tim drain terminates in the right upper quadrant as well as in the mid pelvis. Residual rectal stump present with a suture line at this level. The patient is also noted to be status post prior prostatectomy. A small amount of free fluid is present along the left pericolic gutter as well as retroperitoneal and sacral free air. There is some amorphous oval-shaped air within a fluid collection in the deep pelvis measuring 3.2 x 0.7 centimeters (3, 55). There are no dilated loops of large or small intestine. Vasculature: Atherosclerosis without abdominal aortic aneurysm. Pelvis: Status post prostatectomy. Air within the bladder, likely secondary to recent instrumentation. Bones: Degenerative disc disease lumbar spine. IMPRESSION: 1. Status post interval sigmoid resection with left lower quadrant colostomy and 2 abdominal drains. No evidence of obstruction. Somewhat localized area of fluid and air within the pelvis which could represent some evolving postoperative fluid or an early abscess. Of note, the pelvic drain appears to traverse the margin of this fluid. 2. Pneumoperitoneum, mildly decreased compared to the prior exam. 3. Small bilateral pleural effusions with dependent atelectasis. 4. Nonobstructing nephrolithiasis. Please note that all CT scans at this facility use dose modulation, iterative reconstruction, and/or weight-based dosing when appropriate to reduce radiation dose to as low as reasonably achievable. Dictated by Garland Corley MD @ Nov 24 2018 4:17PM Signed by Dr. Garland Corley @ Nov 24 2018 4:35PM
[2018-11-24] MEDS: Ondansetron 4 MG Tab.DIS PO PRN (21:42)
[2018-11-25] MEDS: Acetaminophen/HYDROcodone 325-5 MG Tab PO PRN ×4 (01:22→20:06)
[2018-11-25] MEDS: Morphine 2 MG/ML Syringe IVPUSH PRN ×3 (01:22→08:18)
[2018-11-25] MEDS: Piperacillin/Tazobactam/Dext 3.375 GM in Premix Bag 1 BAG IV SCH ×4 (01:24→20:04)
[2018-11-25] MEDS: Ondansetron 4 MG Tab.DIS PO PRN ×2 (06:00→10:11)
[2018-11-25] MEDS: Enoxaparin 40 MG/0.4 ML Syringe SUBCUT SCH ×2 (08:46→20:07)
[2018-11-25] MEDS: Gabapentin 300 MG Cap PO SCH ×3 (08:46→20:07)
[2018-11-25] MEDS: Celecoxib 200 MG Cap PO SCH (08:46)
[2018-11-25] MEDS: SCOPOLAMINE PATCH CHECK TOP SCH (08:47)
--- NOTE | 2018-11-25 11:09 | PN ---
DATE OF SERVICE: 11/25/2018 SUBJECTIVE: The patient is having more left lower quadrant abdominal pain. He started to have some mild nausea. OBJECTIVE: VITAL SIGNS: Stable. He is afebrile. CARDIOVASCULAR: Regular rhythm and rate. RESPIRATORY: Lungs are clear to auscultation bilaterally. SKIN: Incision is healing quite well. ASSESSMENT: Status post perforated diverticulitis. PLAN: The CT scan showed may be a small bubble concerning for early infection. His white count is normal, but his pain is subjectively and objectively increasing over the last 48 hours. Therefore, we will take the patient back to the operating room this afternoon for exploratory laparotomy to evaluate for possible infectious etiology. Aside from this, all other protocols will remain the same. His ostomy is functioning well. We discussed the risks, benefits, alternatives, and limitations with son including possibility of a negative laparotomy. Imtiaz Kay MD /[id number]
[2018-11-25] MEDS ORDERED: Sodium Chloride 0.9% 1,000 ML IV SCH (12:15)
[2018-11-25] MEDS ORDERED: Propofol 200 MG/20 ML SDV ONE (15:38)
[2018-11-25] MEDS ORDERED: fentaNYL 250 MCG/5 ML SDV ONE (15:38)
[2018-11-25] MEDS ORDERED: Ondansetron 4 MG/2 ML SDV ONE (15:38)
[2018-11-25] MEDS ORDERED: Dexamethasone 4 MG/ML SDV ONE (15:38)
[2018-11-25] MEDS ORDERED: Rocuronium 50 MG/5 ML Vial ONE (15:38)
[2018-11-25] MEDS ORDERED: Midazolam 1 MG/ML 2 ML SDV ONE (15:38)
[2018-11-25] MEDS ORDERED: Neostigmine Methylsulfate 1 MG/ML 5 ML Syringe ONE (15:38)
[2018-11-25] MEDS ORDERED: Glycopyrrolate 0.2 MG/ML 5 ML MDV ONE (15:38)
[2018-11-25] MEDS ORDERED: Ropivacaine 36 ML, dexAMETHasone 8 MG, EPINEPHrine 0.4 MG, Sodium Chloride 0.9% 41.6 ML NERVRT SCH ×4 (16:00)
--- NOTE | 2018-11-25 16:06 | PN ---
DATE OF SERVICE: 11/25/2018 The patient was originally scheduled for exploratory laparotomy, however, his 9/10 pain has completely gone. Ostomy is functioning well. He has no fever. He has no pain with palpation. His incision is healing well. Therefore, we will postpone any further . We will start him back on his diet, and if he develops the pain again, we will do an exploratory laparotomy on him in the morning. Imtiaz Kay MD /[id number]
[2018-11-26] MEDS: Sodium Chloride 0.9% 1,000 ML IV SCH ×2 (00:04→08:14)
[2018-11-26] MEDS: Acetaminophen/HYDROcodone 325-5 MG Tab PO PRN (00:13)
[2018-11-26] MEDS: Piperacillin/Tazobactam/Dext 3.375 GM in Premix Bag 1 BAG IV SCH ×4 (02:17→19:48)
[2018-11-26] MEDS: Morphine 2 MG/ML Syringe IVPUSH PRN ×6 (04:33→12:28)
[2018-11-26] MEDS ORDERED: Iohexol 300 MG/ML 30 ML Bottle PO ONE (08:09)
--- NOTE | 2018-11-26 09:45 | PN ---
DATE OF SERVICE: 11/26/2018 SUBJECTIVE: The patient has his pain recurring again today. His ostomy is still functioning well and tolerating diet. OBJECTIVE: VITAL SIGNS: Vital signs are stable. He is afebrile. CARDIOVASCULAR: Regular rhythm and rate. RESPIRATORY: Lungs are clear to auscultation bilaterally. ABDOMEN: Bowel sounds are positive. Ostomy output is good. ASSESSMENT: Diverticulitis attack. PLAN: We will CT scan him today with p.o. contrast to further delineate the etiology of this abdominal pain. Imtiaz Kay MD /[id number]
[2018-11-26] MEDS: SCOPOLAMINE PATCH CHECK TOP SCH (10:00)
[2018-11-26] MEDS: Potassium Chloride 20 MEQ, Lidocaine 1% 2 ML in Sodium Chloride 0.9% 100 ML IV SCH ×3 (11:09→17:14)
[2018-11-26] MEDS: Ondansetron 4 MG Tab.DIS PO PRN (11:11)
--- NOTE | 2018-11-26 12:19 | CRLCT ---
Indication: Left lower quadrant abdominal pain. Status post ostomy surgery. Technique: CT abdomen and pelvis with oral contrast only. Comparison: November 24, 2018. Findings: Stable bilateral pleural effusions and passive atelectasis in the lung bases. Left ventral ostomy is again demonstrated. Inflammation of the stump may have mildly increased. GI tract is otherwise within normal limits in caliber and appearance. Again demonstrated are drainage catheters in the right upper quadrant and pelvis. Again demonstrated is a regional area of inflammation with foci of free air measuring approximately 3 cm in diameter in the lower abdomen just to the left of midline as demonstrated on series 2, image 85, this is not significantly changed. Inflammation/edema extends from this point into the lower pelvis. This is also not significantly changed. Free air in the upper abdomen is unchanged. Liver, gallbladder, pancreas, spleen, adrenal glands and kidneys demonstrate no acute findings or changes. Stable nonobstructive bilateral nephrolithiasis. Impression: 1. Left ventral ostomy is present. The stump appears inflamed, this inflammation may have very mildly increased. 2. No significant change with respect to a 3 cm phlegmon in the left lower abdomen. Moderate free air is stable. 3. Stable pleural effusions. 4. No other acute findings or significant changes. Please note that all CT scans at this facility use dose modulation, iterative reconstruction, and/or weight-based dosing when appropriate to reduce radiation dose to as low as reasonably achievable. Dictated by Austin Goldberg MD @ Nov 26 2018 12:01PM Signed by Dr. Austin Goldberg @ Nov 26 2018 12:16PM
[2018-11-26] MEDS ORDERED: fentaNYL/Normal Saline 600 MCG/30 ML PCA Vial IV PRN (12:45)
[2018-11-26] MEDS ORDERED: Naloxone 0.4 MG/ML SDV IV PRN (12:48)
[2018-11-26] MEDS: Enoxaparin 40 MG/0.4 ML Syringe SUBCUT SCH ×2 (13:46→21:30)
[2018-11-26] MEDS: Celecoxib 200 MG Cap PO SCH (13:46)
[2018-11-26] MEDS: Gabapentin 300 MG Cap PO SCH ×3 (13:46→21:30)
[2018-11-26] MEDS ORDERED: fentaNYL 250 MCG/5 ML SDV ONE (15:05)
[2018-11-26] MEDS ORDERED: Succinylcholine 200 MG/10 ML MDV ONE (15:06)
[2018-11-26] MEDS ORDERED: Propofol 200 MG/20 ML SDV ONE (15:06)
[2018-11-26] MEDS ORDERED: Rocuronium 50 MG/5 ML Vial ONE (15:06)
[2018-11-26] MEDS ORDERED: Neostigmine Methylsulfate 1 MG/ML 5 ML Syringe ONE (15:06)
[2018-11-26] MEDS ORDERED: Glycopyrrolate 0.2 MG/ML 5 ML MDV ONE (15:06)
[2018-11-26] MEDS ORDERED: Ondansetron 4 MG/2 ML SDV ONE (15:06)
[2018-11-26] MEDS ORDERED: Dexamethasone 4 MG/ML SDV ONE (15:06)
[2018-11-26] MEDS ORDERED: Lactated Ringers 1,000 ML ONE (15:10)
[2018-11-26] MEDS ORDERED: Ropivacaine 36 ML, dexAMETHasone 8 MG, EPINEPHrine 0.4 MG, Sodium Chloride 0.9% 41.6 ML NERVRT SCH ×4 (15:30)
[2018-11-26] MEDS ORDERED: Meropenem 500 MG SDV ONE (15:32)
[2018-11-26] MEDS ORDERED: Ketorolac 60 MG/2 ML SDV ONE (16:03)
[2018-11-26] MEDS ORDERED: fentaNYL 100 MCG/2 ML SDV ONE (16:05)
[2018-11-27] MEDS: Sodium Chloride 0.9% 1,000 ML IV SCH ×2 (01:00→10:06)
[2018-11-27] MEDS: Piperacillin/Tazobactam/Dext 3.375 GM in Premix Bag 1 BAG IV SCH ×4 (01:23→20:04)
[2018-11-27] MEDS: Celecoxib 200 MG Cap PO SCH (09:07)
[2018-11-27] MEDS: Enoxaparin 40 MG/0.4 ML Syringe SUBCUT SCH ×2 (09:07→20:04)
[2018-11-27] MEDS: Gabapentin 300 MG Cap PO SCH ×3 (09:07→20:04)
[2018-11-27] MEDS: SCOPOLAMINE PATCH CHECK TOP SCH (09:07)
--- NOTE | 2018-11-27 09:39 | PN ---
DATE OF SERVICE: 11/27/2018 SUBJECTIVE: The patient is improving again today. His pain which had been 10/10 preoperatively is now gone. He does have incisional pain, which should be appropriate for the situation. He has no nausea, vomiting, shortness of breath, or chest pain. The ostomy started to work. OBJECTIVE: VITAL SIGNS: Stable. CARDIOVASCULAR: Regular rhythm and rate. RESPIRATORY: Lungs are clear to auscultation bilaterally. ABDOMEN: No distention. No guarding. The dressings are intact. The drain output is serosanguineous. ASSESSMENT: Status post perforated diverticulitis. PLAN: The patient will continue to advance his diet today. We will saline lock him. He is to continue Lovenox. We will add physical therapy consultation and we will continue the antibiotics at this time. Imtiaz Kay MD /[id number]
[2018-11-28] MEDS: Piperacillin/Tazobactam/Dext 3.375 GM in Premix Bag 1 BAG IV SCH ×4 (02:50→20:27)
[2018-11-28] MEDS: Acetaminophen/HYDROcodone 325-5 MG Tab PO PRN ×2 (02:53→08:33)
[2018-11-28] MEDS: Morphine 2 MG/ML Syringe IVPUSH PRN (03:06)
[2018-11-28] MEDS: SCOPOLAMINE PATCH CHECK TOP SCH (08:23)
[2018-11-28] MEDS: Gabapentin 300 MG Cap PO SCH ×3 (08:23→20:27)
[2018-11-28] MEDS: Enoxaparin 40 MG/0.4 ML Syringe SUBCUT SCH ×2 (08:23→20:27)
[2018-11-28] MEDS: Celecoxib 200 MG Cap PO SCH (08:23)
[2018-11-28] MEDS ORDERED: hydrOXYzine HCl 100 MG/2 ML SDV IM PRN (09:08)
--- NOTE | 2018-11-28 11:34 | PN ---
DATE OF SERVICE: 11/28/2018 SUBJECTIVE: The patient continues to improve today. He still states the left lower quadrant abdominal pain is there. The patient had some concerns this morning as he felt he is not getting the care he used to because the nurses are encouraging him to do more independent things such as go to the bathroom rather use the urinal. Ostomy output is noted. OBJECTIVE: VITAL SIGNS: Vital signs are stable. He is afebrile. CARDIOVASCULAR: Regular rhythm and rate. RESPIRATORY: Lungs are clear to auscultation bilaterally. ABDOMEN: Incision is healing well. ASSESSMENT: Diverticulitis. PLAN: As far as patient's concerns, I educated the patient that these are intentional and encouraged. Plan as we want the patient to become independent again which will facilitate his discharge and overall recovery. He is to continue on his diet. As far his pain, we will stop his EXERCISE PHYSIOLOGIST today and continue p.o. pain medication along with NSAIDs and re-evaluate tomorrow. Imtiaz Kay MD /[id number]
[2018-11-28] MEDS: Acetaminophen/oxyCODONE 325-10 MG Tab PO PRN ×2 (11:35→17:30)
[2018-11-28] MEDS: Docusate Sodium 100 MG Cap PO SCH (17:31)
[2018-11-29] MEDS: Acetaminophen/oxyCODONE 325-10 MG Tab PO PRN ×2 (00:04→05:54)
[2018-11-29] MEDS: Piperacillin/Tazobactam/Dext 3.375 GM in Premix Bag 1 BAG IV SCH ×2 (02:23→07:51)
[2018-11-29] MEDS: Enoxaparin 40 MG/0.4 ML Syringe SUBCUT SCH (08:05)
[2018-11-29] MEDS: Gabapentin 300 MG Cap PO SCH (08:05)
[2018-11-29] MEDS: Celecoxib 200 MG Cap PO SCH (08:05)
[2018-11-29] MEDS: Docusate Sodium 100 MG Cap PO SCH (08:05)
--- NOTE | 2018-11-29 14:25 | DISCH ---
DISCHARGE DIAGNOSES: Status post Eros procedure for perforated diverticulitis. CONSULTATIONS DURING THIS HOSPITALIZATION: None. SUMMARY OF HOSPITAL COURSE: This is a pleasant 72-year-old male who had a severe infection and sepsis secondary to perforated diverticulitis. On admission, the patient had bouts of confusion and other signs of advanced stage sepsis. He was taken to the operating room and underwent a Eros procedure and washout due to a large amount of stool in his abdomen. The patient did well. He did develop on approximately postop day [address] A [address] scan was performed which showed possible inflammation and noted phlegmon. Due to the concern of developing more occult abscess, the patient was taken to exploratory laparotomy. This exploratory laparotomy did not show any abnormalities. Ultrasound was performed during that laparotomy and did not show any material. The patient continued to have some intermittent pain; however, prior to discharge, the pain is well controlled with pain medications. He had no nausea, vomiting, shortness of breath, or chest pain. His ostomy is functioning well. He is instructed on ostomy care and drain care. DISCHARGE MEDICATIONS: Reviewed. All home medications are unchanged. He is to take Percocet for pain and he is also to take cephalexin x5 weeks for antibiotic prophylaxis. FOLLOWUP: With Surgery in 7 to 14 days. ACTIVITY: No lifting greater than 30 pounds x30 days.
--- NOTE | 2018-12-01 08:02 | OR ---
DATE OF PROCEDURE: 11/26/2018 SURGEON: Imtiaz Kay MD PROCEDURE: Reopening of recent laparotomy. FINDINGS: No gross abnormalities. COMPLICATIONS: None. WHARF TENDER HEAD: None. ANESTHESIA: General. INDICATIONS: A pleasant 72-year-old male who underwent a Eros's procedure due to severe diverticulitis and sepsis. The patient continued to improve over his surgical recovery period. Unfortunately, he developed intense abdominal pain of unknown etiology. A CT scan was performed which showed no diffuse abscess, however, inflammation was noted in the rectal stump area and abscess cannot be excluded. RISKS: Risks, benefits, alternatives, and limitations including, but not limited to infection, bleeding, perforation, requirement for revision of ostomy, additional open procedures, delayed primary closure, resection of bowel, and other limitations not listed here were explained to the patient, who wished to proceed. PROCEDURE IN DETAIL: The patient was placed in supine position. The previous bárbara were removed. The abdomen was then opened via the midline. #1 Vicryl sutures were removed. The bowel was inspected. No evidence of abnormality was noted. The bowel was ran in its entirety. The abdominal fluid was cultured. The liver was inspected around the spleen. The ostomy was viable. In the pelvis itself, the rectal stump was noted to have inflammation, which appeared appropriate for his condition. The abdomen was then irrigated with approximately 5 L of irrigation. The fascia was closed with #1 Vicryl suture in running fashion x2. Subcutaneous tissues were irrigated and closed with bárbara. The patient tolerated the procedure well. Imtiaz Kay MD /[id number]
--- NOTE | 2018-12-01 08:05 | OR ---
DATE OF PROCEDURE: 11/26/2018 SURGEON: Imtiaz Kay MD PROCEDURE: Bilateral transversus abdominis plane blocks. COMPLICATIONS: None. SUPERVISOR RECLAMATION: None. INDICATIONS: A pleasant 72-year-old male requiring pain management. RISKS: Risks, benefits, alternatives, and limitations including, but not limited to infection, bleeding, and injury to abdominal structures were explained to the patient, and they wished to proceed. PROCEDURE IN DETAIL: The patient was placed in supine position. The left transversus abdominis plane was identified first. This was accessed using a 21-gauge needle under direct ultrasound guidance. Entire contents were injected around the transversus plane. The opposite side was then performed in same manner, same fashion, same technique, in the same sequence, and using the same equipment, except different needle and syringe. The patient tolerated the procedure well. Imtiaz Kay MD /[id number]
--- NOTE | 2018-12-01 09:38 | PN ---
DATE OF SERVICE: 11/29/2018 SUBJECTIVE: The patient is doing pretty well. Pain is now 0-1/10 and well controlled. He has no nausea, vomiting, shortness of breath, or chest pain. His ostomy is putting out well. His drain output is serosanguineous and minimal. OBJECTIVE: VITAL SIGNS: Vital signs are stable. He is afebrile. CARDIOVASCULAR: Regular rhythm and rate. RESPIRATORY: Lungs clear to auscultation. ABDOMEN: Incision is healing well. Ostomy is viable and functional. ASSESSMENT: Status post Eros procedure secondary to perforated diverticulitis. PLAN: The patient will be discharged today. Please see discharge summary for further details. Imtiaz Kay MD /[id number]
== END 2018-11-29 14:50 | disposition home or self-care (01) | DRG 854 ==
LOC: JP.ED 13:57 → JP.SDS 13:57 → JP.ICU 19:58 → JP.MS 11-21 14:36
PROVIDERS: ADMIT Surgery; ATTEND Surgery
PROC: 0DBN0ZZ Excision of Sigmoid Colon, Open Approach (ICD-10-PCS; principal; 2018-11-20)
PROC: 0DBP0ZZ Excision of Rectum, Open Approach (ICD-10-PCS; 2018-11-20)
PROC: 0D1N0Z4 Bypass Sigmoid Colon to Cutaneous, Open Approach (ICD-10-PCS; 2018-11-20)
PROC: 0WQF0ZZ Repair Abdominal Wall, Open Approach (ICD-10-PCS; 2018-11-22)
PROC: 0WJG0ZZ Inspection of Peritoneal Cavity, Open Approach (ICD-10-PCS; 2018-11-26)
DX: A41.9 Sepsis, unspecified organism (principal); R50.9 Fever, unspecified; R11.2 Nausea with vomiting, unspecified; R10.30 Lower abdominal pain, unspecified; R53.81 Other malaise; K57.20 Diverticulitis of large intestine with perforation and abscess without bleeding; H91.90 Unspecified hearing loss, unspecified ear; I10 Essential (primary) hypertension; E89.0 Postprocedural hypothyroidism; M19.90 Unspecified osteoarthritis, unspecified site; Z88.1 Allergy status to other antibiotic agents; Z79.899 Other long term (current) drug therapy; R19.7 Diarrhea, unspecified; Z79.52 Long term (current) use of systemic steroids; Z85.46 Personal history of malignant neoplasm of prostate; Z90.79 Acquired absence of other genital organ(s)
CPT/HCPCS: 36415; 44141; 49020; 74176; 80053; 83605; 85025; 87046; 87070; 87075; 87077 ×4; 87177; 87186 ×2; 87205; 87209; 87493; 87899 ×2; 88307; 89055; 96361; 96365; 96375; 96376; 99285 ×2; J0171; J0330; J1100 ×2; J1170 ×2; J1335; J1885; J2185; J2405 ×2; J2704; J2710; J2795; J3010 ×2; J3490; J7030 ×2; J7050; J7120; 80048; 81003; 83735; 84100; 85027; 94762; 97116-GP; 97161-GP; 97530-GP; 97605; A9270-GY; J1650; J2001; J2250; J2270; J2543; J3410; J3480; Q9965

== ENCOUNTER 2020-01-28 17:12 | Inpatient (IN) | payer MEDICARE, OTHER ==
--- NOTE | 2020-01-28 18:20 | EDM.PDOC ---
ED HPI GENERAL MEDICAL PROBLEM - General Chief Complaint: Abdominal Pain Stated Complaint: low abdominal pain Time Seen by Provider: 01/28/20 18:00 Source of Information: Reports: Patient, Old Records, RN History Limitations: Reports: No Limitations - History of Present Illness INITIAL COMMENTS - FREE TEXT/NARRATIVE: 74 yo male here with low abdominal pain that began about noon and is associated with mild nausea. No dysuria, hematuria or change in bowels. No fever. Has a pHx of a ruptured diverticulum that led to an ileostomy placement and eventual reversal. He still has his appendix. The pain is RLQ and LLQ. Pain was a 10/10 when he arrived, but has gone down to 6/10 without tx. Onset: Today, Sudden Onset Date: 01/28/20 Duration: Hour(s):, Improving Location: Reports: Abdomen Quality: Reports: Other (cramps) Severity: Moderate (now, was severe earlier) Improves with: Reports: Other (unknown) Worsens with: Reports: Other (unknown) Context: Reports: Other (See HPI) Associated Symptoms: Reports: Nausea/Vomiting (no vomiting). Denies: Fever/Chills Treatments [employer]: Reports: Other (see below) (none) Lower Anterior Abdomen Pain Score (Numeric/FACES): 9 - Related Data Allergies Allergy/AdvReac Type Severity Reaction Status Date / Time ciprofloxacin [From Cipro] Allergy Other Verified 11/20/18 14:18 levofloxacin Allergy Other Verified 11/20/18 14:18 Home Meds: Home Meds atenoloL [Atenolol] 100 mg PO DAILY 12/03/17 [History] atorvaSTATin [Lipitor] 100 mg PO BEDTIME 12/03/17 [History] predniSONE [Prednisone] 5 mg PO DAILY 11/18/18 [History] Past Medical History HEENT History: Reports: Hard of Hearing Cardiovascular History: Reports: Hypertension Gastrointestinal History: Reports: Diverticulosis Musculoskeletal History: Reports: Arthritis Psychiatric History: Reports: None Endocrine/Metabolic History: Reports: None Immunologic History: Reports: None Oncologic (Cancer) History: Reports: Prostate - Past Surgical History Cardiovascular Surgical History: Reports: None GI Surgical History: Reports: Colostomy, Other (See Below) Other GI Surgeries/Procedures: diverticulitis with colostomy and reversal. first colostomy reversal failed, had iliostomy now reversed. Male Surgical History: Reports: Prostatectomy, Renal Calculus, Other (See [place] ow) Other Male Surgeries/Procedures: stone removed last august Endocrine Surgical History: Reports: Thyroidectomy Neurological Surgical History: Reports: Laminectomy, Lumbar Spine Musculoskeletal Surgical History: Reports: Shoulder Surgery Social & Family History - Family History Family Medical History: Noncontributory - Tobacco Use Smoking Status *Q: Never Smoker - Caffeine Use Caffeine Use: Reports: None - Recreational Drug Use Recreational Drug Use: No ED ROS GENERAL - Review of Systems Review Of Systems: See Below Constitutional: Reports: No Symptoms HEENT: Reports: No Symptoms Respiratory: Reports: No Symptoms Cardiovascular: Reports: No Symptoms Endocrine: Reports: No Symptoms GI/Abdominal: Reports: Abdominal Pain, Nausea. Denies: Black Stool, Bloody Stool, Constipation, Diarrhea, Distension, Flatus, Hematemesis, Hematochezia, Melena, Vomiting : Reports: No Symptoms Musculoskeletal: Reports: No Symptoms Skin: Reports: No Symptoms Neurological: Reports: No Symptoms Psychiatric: Reports: No Symptoms ED EXAM, GI/ABD - Physical Exam Exam: See Below Exam Limited By: No Limitations General Appearance: Alert, WD/WN, No Apparent Distress Eyes: Bilateral: Normal Appearance Ears: Normal External Exam, Normal Canal, Hearing Grossly Normal, Hearing Loss Nose: Normal Inspection, No Blood Throat/Mouth: Normal Inspection, Normal Lips, Normal Oropharynx, Normal Voice, No Airway Compromise Head: Atraumatic, Normocephalic Neck: Normal Inspection, Non-Tender Respiratory/Chest: No Respiratory Distress, Lungs Clear, Normal Breath Sounds, No Accessory Muscle Use Cardiovascular: Regular Rate, Rhythm, No Edema GI/Abdominal Exam: Normal Bowel Sounds, Soft, No Distention, Tender (RLQ most significantly). No: Non-Tender, Distended Extremities: Normal Inspection, Normal Range of Motion, Non-Tender, No Pedal Edema Neurological: Alert, Oriented, CN II-XII Intact, Normal Cognition, No Motor/Sensory Deficits Psychiatric: Normal Affect, Normal Mood Skin Exam: Warm, Dry, Intact, Normal Color, No Rash Course - Vital Signs Text/Narrative:: Alanis Sánchez called @ Dr. Kay called @ Last Recorded V/S: Last Vital Signs Temp 35.6 C L 01/28/20 17:54 Pulse 50 L 01/28/20 17:54 Resp 22 H 01/28/20 17:54 BP 141/80 H 01/28/20 17:54 Pulse Ox 100 01/28/20 17:54 - Orders/Labs/Meds Orders: Active Orders 24 hr Category Date Time Status Bladder Scan [RC] ASDIRECTED Care 01/28/20 18:01 Active Iopamidol [Isovue-300 (61%)] Med 01/28/20 19:00 Active 100 ml IV . DIRECTED Sodium Chloride 0.9% [Normal Saline] 80 ml Med 01/28/20 19:00 Active IV ASDIRECTED Sodium Chloride 0.9% [Saline Flush] Med 01/28/20 18:14 Active 10 ml FLUSH ASDIRECTED PRN Saline Lock Insert [OM.PC] Routine Oth 01/28/20 18:14 Ordered Medication Orders Sodium Chloride (Normal Saline) 80 mls @ 3 mls/sec IV ASDIRECTED CARLY Last Admin: 01/28/20 19:24 Dose: 3 mls/sec Documented by: JACK Iopamidol (Isovue-300 (61%)) 100 ml IV . DIRECTED CARLY Last Admin: 01/28/20 19:24 Dose: 100 ml Documented by: JACK Sodium Chloride (Saline Flush) 10 ml FLUSH ASDIRECTED PRN PRN Reason: Keep Vein Open Last Admin: 01/28/20 19:24 Dose: 10 ml Documented by: Admin: 01/28/20 18:32 Dose: 10 ml Documented by: FARRUKH Labs: Laboratory Tests 01/28/20 01/28/20 01/28/20 Range/Units 18:01 18:14 18:14 WBC 8.0 (4.5-11.0) K/uL RBC 4.79 (4.30-5.90) M/uL Hgb 15.2 H D (12.0-15.0) g/dL Hct 45.1 (40.0-54.0) % MCV 94 (80-98) fL MCH 32 H (27-31) pg MCHC 34 (32-36) % Plt Count 286 (150-400) K/uL Sodium 142 (140-148) mmol/L Potassium 4.0 (3.6-5.2) mmol/L Chloride 106 (100-108) mmol/L Carbon Dioxide 26 (21-32) mmol/L Anion Gap 10.3 (5.0-14.0) mmol/L BUN 30 H D (7-18) mg/dL Creatinine 1.4 H D (0.8-1.3) mg/dL Est Cr Clr Drug Dosing 43.43 mL/min Estimated GFR (MDRD) 49 L (>60) Glucose 99 (74-106) mg/dL Calcium 9.0 D (8.5-10.1) mg/dL C-Reactive Protein 0.06 (0.0-0.3) mg/dL Urine Color Yellow (YELLOW) Urine Appearance Clear (CLEAR) Urine pH 6.0 (5.0-8.0) Ur Specific [place] 1.025 (1.008-1.030) Urine Protein Negative (NEGATIVE) mg/dL Urine Glucose (UA) Negative (NEGATIVE) mg/dL Urine Ketones Trace H (NEGATIVE) mg/dL Urine Occult Blood Negative (NEGATIVE) Urine Nitrite Negative (NEGATIVE) Urine Bilirubin Negative (NEGATIVE) Urine Urobilinogen 0.2 (0.2-1.0) EU/dL Ur Leukocyte Esterase Negative (NEGATIVE) Urine RBC 0-5 (0-5) Urine WBC 0-5 (0-5) Ur Epithelial Cells Few Amorphous Sediment Not seen Urine Bacteria Not seen Urine Mucus Moderate Meds: Medications Generic Name Dose Route Start Last Admin Trade Name Freq PRN Reason Stop Dose Admin Sodium Chloride 80 mls @ 3 mls/sec 01/28/20 19:00 01/28/20 19:24 Normal Saline IV 3 mls/sec ASDIRECTED CARLY Administration Iopamidol 100 ml 01/28/20 19:00 01/28/20 19:24 Isovue-300 (61%) IV 100 ml . DIRECTED CARLY Administration Sodium Chloride 10 ml 01/28/20 18:14 01/28/20 19:24 Saline Flush FLUSH 10 ml ASDIRECTED PRN Administration Keep Vein Open Discontinued Medications Generic Name Dose Route Start Last Admin Trade Name Freq PRN Reason Stop Dose Admin Lactated Ringer's 1,000 mls @ 1,000 mls/hr 01/28/20 18:47 01/28/20 18:54 Ringers, Lactated IV 01/28/20 19:46 1,000 mls/hr BOLUS ONE Administration - Radiology Interpretation Free Text/Narrative:: CT abd/pelvis with IV contrast- IMPRESSION: Findings suggest a very early small bowel obstruction with transition point at anastomotic suture line in the right lower quadrant small bowel. Colonic diverticulosis. Nonobstructive bilateral nephrolithiasis. Status post prostatectomy. Please note that all CT scans at this facility use dose modulation, iterative reconstruction, and/or weight-based dosing when appropriate to reduce radiation dose to as low as reasonably achievable. Departure - Departure Time of Disposition: 20:10 Disposition: Admitted As Inpatient 64 Condition: Fair Clinical Impression: SBO (small bowel obstruction) - Discharge Information *PRESCRIPTION DRUG MONITORING PROGRAM REVIEWED*: Not Applicable *COPY OF PRESCRIPTION DRUG MONITORING REPORT IN PATIENT KATHARINE: Not Applicable Referrals: Rob Stoll MD [Primary Care Provider] - Forms: ED Department Discharge Sepsis Event Note (ED) - Evaluation Sepsis Screening Result: No Definite Risk - Focused Exam Vital Signs: Vital Signs Temp Pulse Resp BP Pulse Ox 01/28/20 17:54 35.6 C L 50 L 22 H 141/80 H 100 - My Orders Last 24 Hours: My Active Orders 01/28/20 18:01 Bladder Scan [RC] ASDIRECTED 01/28/20 18:14 Sodium Chloride 0.9% [Saline Flush] 10 ml FLUSH ASDIRECTED PRN Saline Lock Insert [OM.PC] Routine 01/28/20 19:00 Iopamidol [Isovue-300 (61%)] 100 ml IV . DIRECTED Sodium Chloride 0.9% [Normal Saline] 80 ml IV ASDIRECTED - Assessment/Plan Last 24 Hours: My Active Orders 01/28/20 18:01 Bladder Scan [RC] ASDIRECTED 01/28/20 18:14 Sodium Chloride 0.9% [Saline Flush] 10 ml FLUSH ASDIRECTED PRN Saline Lock Insert [OM.PC] Routine 01/28/20 19:00 Iopamidol [Isovue-300 (61%)] 100 ml IV . DIRECTED Sodium Chloride 0.9% [Normal Saline] 80 ml IV ASDIRECTED
[2020-01-28] MEDS: Sodium Chloride 0.9% 10 ML Syringe FLUSH PRN ×2 (18:32→19:24)
[2020-01-28] MEDS ORDERED: Lactated Ringers 1,000 ML IV ONE (18:47)
[2020-01-28] MEDS ORDERED: Iopamidol 612 MG/ML 100 ML Bottle IV SCH (19:00)
[2020-01-28] MEDS ORDERED: Sodium Chloride 0.9% 80 ML IV SCH (19:00)
--- NOTE | 2020-01-28 19:56 | CRLCT ---
INDICATION: Lower abdominal pain TECHNIQUE: CT abdomen and pelvis acquired with 100 cc Isovue-300 IV contrast. COMPARISON: November 26, 2018 FINDINGS: Lower chest: Unremarkable. Liver: Unremarkable. Spleen: Unremarkable. Pancreas: Unremarkable. Gallbladder and bile ducts: Unremarkable. Adrenal glands: Unremarkable. Kidneys: Nonobstructive bilateral renal stones. GI tract: Anastomotic suture seen within bowel loops in the right abdomen and distal sigmoid colon. There is some fluid filled but nondilated loops of small bowel in the lower abdomen. There is some debris within some of the bowel loops. These findings are seen directly proximal to the anastomotic suture line. Small bowel distal to the suture line is decompressed. Colonic diverticulosis. Vascular structures: Moderate atherosclerotic calcifications. Lymph nodes: Unremarkable. Miscellaneous: Unremarkable. No free air or significant free fluid. Pelvic Organs: Status post prostatectomy. Bones: Unremarkable for age. IMPRESSION: Findings suggest a very early small bowel obstruction with transition point at anastomotic suture line in the right lower quadrant small bowel. Colonic diverticulosis. Nonobstructive bilateral nephrolithiasis. Status post prostatectomy. Please note that all CT scans at this facility use dose modulation, iterative reconstruction, and/or weight-based dosing when appropriate to reduce radiation dose to as low as reasonably achievable. Dictated by Caty Dobbins MD @ Jan 28 2020 7:43PM Signed by Dr. Caty Dobbins @ Jan 28 2020 7:54PM
[2020-01-28] MEDS ORDERED: HYDROmorphone 0.5 MG/0.5 ML Syringe IVPUSH ONE (20:16)
[2020-01-28] MEDS ORDERED: Ondansetron 4 MG/2 ML SDV ONE (20:30)
[2020-01-28] MEDS ORDERED: Ondansetron 4 MG/2 ML SDV IVPUSH ONE (20:33)
--- NOTE | 2020-01-28 21:15 | PCM.HP.2 ---
H&P History of Present Illness - General Date of Service: 01/28/20 Admit Problem/Dx: Admission Diagnosis/Problem Admission Diagnosis/Problem Small bowel obstruction Source of Information: Patient, Provider History Limitations: Reports: No Limitations - History of Present Illness Initial Comments - Free Text/Narative: CHIEF COMPLAINT: abdominal pain This is a 74 year old male present to the ER for abdominal started at 12 pm today with eating of 2 cookies and 1 ensure. He since then has been having intermittent sharp abdominal pain. Has not thrown up but feels very nauseated. reports has not had a bowel obstruction but has had abdominal surgeries. Onset of Symptoms: Reports: Today Symptom Onset Date: 01/28/20 Symptom Onset Time: 12:00 Duration of Symptoms: Reports: Getting Worse, Waxing/Waning Location: Reports: Abdomen Quality: Reports: Sharp, Stabbing Severity: Severe Improves with: Reports: None Worsens with: Reports: None Context: Reports: Other (sudden onset ) Associated Symptoms: Reports: Fever/Chills, Loss of Appetite, Nausea/Vomiting Lower Anterior Abdomen Pain Score (Numeric/FACES): 9 - Related Data Allergies/Adverse Reactions: Allergies Allergy/AdvReac Type Severity Reaction Status Date / Time ciprofloxacin [From Cipro] Allergy Other Verified 11/20/18 14:18 levofloxacin Allergy Other Verified 11/20/18 14:18 Home Medications: Home Meds atenoloL [Atenolol] 100 mg PO DAILY 12/03/17 [History] atorvaSTATin [Lipitor] 100 mg PO BEDTIME 12/03/17 [History] predniSONE [Prednisone] 5 mg PO DAILY 11/18/18 [History] Past Medical History HEENT History: Reports: Hard of Hearing Cardiovascular History: Reports: Hypertension Gastrointestinal History: Reports: Diverticulosis Genitourinary History: Reports: Other (See Below) (prostate cancer) Musculoskeletal History: Reports: Arthritis Psychiatric History: Reports: None Endocrine/Metabolic History: Reports: None Immunologic History: Reports: None Oncologic (Cancer) History: Reports: Prostate - Past Surgical History Cardiovascular Surgical History: Reports: None GI Surgical History: Reports: Colostomy, Other (See Below) Other GI Surgeries/Procedures: diverticulitis with colostomy and reversal. first colostomy reversal failed, had iliostomy now reversed. Male Surgical History: Reports: Prostatectomy, Renal Calculus, Other (See Below) Other Male Surgeries/Procedures: stone removed last august Endocrine Surgical History: Reports: Thyroidectomy Neurological Surgical History: Reports: Laminectomy, Lumbar Spine Musculoskeletal Surgical History: Reports: Shoulder Surgery Social & Family History - Family History Family Medical History: Noncontributory - Tobacco Use Smoking Status *Q: Never Smoker - Caffeine Use Caffeine Use: Reports: None - Recreational Drug Use Recreational Drug Use: No - Living Situation & Occupation Living situation: Reports: ( Echo, one child) Occupation: Retired H&P Review of Systems - Review of Systems: Review Of Systems: See Below General: Reports: Chills HEENT: Reports: Glasses (reading) Pulmonary: Reports: No Symptoms Cardiovascular: Reports: No Symptoms Gastrointestinal: Reports: Abdominal Pain, Decreased Appetite, Nausea, Vomiting (vomited after receiving 0.5 mg of Dilaudid) Genitourinary: Reports: No Symptoms Musculoskeletal: Reports: No Symptoms Skin: Reports: No Symptoms Psychiatric: Reports: No Symptoms Neurological: Reports: No Symptoms Hematologic/Lymphatic: Reports: No Symptoms Exam - Exam Exam: See Below - Vital Signs Vital Signs: Last Vital Signs Temp 35.6 C L 01/28/20 17:54 Pulse 50 L 01/28/20 17:54 Resp 22 H 01/28/20 17:54 BP 141/80 H 01/28/20 17:54 Pulse Ox 100 01/28/20 17:54 Weight: 69.8 kg - Exam Quality Assessment: DVT Prophylaxis General: Alert, Oriented, Cooperative, Moderate Distress HEENT: PERRLA, Conjunctiva Clear, Hearing Intact, Mucosa Moist & [place], Nares Patent Neck: Supple, Trachea Midline, 2 Lungs: Clear to Auscultation, Normal Respiratory Effort Cardiovascular: Regular Rate, Regular Rhythm GI/Abdominal Exam: Normal Bowel Sounds (bowel sounds present all quadrants. ), Tender (generalized), Other (multi well healed surgical scars) (Male) Exam: Deferred Rectal (Males) Exam: Deferred Back Exam: Normal Inspection, Full Range of Motion Extremities: Normal Inspection, Normal Range of Motion, Non-Tender, No Pedal Edema, Normal Capillary Refill Peripheral Pulses: 2+: Radial (L), Radial (R), Posterior Tibial (R), Dorsalis Pedis (L) Skin: Warm, Dry, Intact Neurological: Cranial Nerves Intact, Reflexes Equal Bilateral Neuro Extensive - Mental Status: Alert, Oriented x3, Normal Mood/Affect, Normal Cognition Neuro Extensive - Motor, Sensory, Reflexes: CN II-XII Intact, Normal Gait, Normal Reflexes Psychiatric: Alert, Normal Affect, Normal Mood - Patient Data Lab Results Last 24 hrs: Laboratory Results - last 24 hr 01/28/20 01/28/20 01/28/20 Range/Units 18:01 18:14 18:14 WBC 8.0 (4.5-11.0) K/uL RBC 4.79 (4.30-5.90) M/uL Hgb 15.2 H D (12.0-15.0) g/dL Hct 45.1 (40.0-54.0) % MCV 94 (80-98) fL MCH 32 H (27-31) pg MCHC 34 (32-36) % Plt Count 286 (150-400) K/uL Sodium 142 (140-148) mmol/L Potassium 4.0 (3.6-5.2) mmol/L Chloride 106 (100-108) mmol/L Carbon Dioxide 26 (21-32) mmol/L Anion Gap 10.3 (5.0-14.0) mmol/L BUN 30 H D (7-18) mg/dL Creatinine 1.4 H D (0.8-1.3) mg/dL Est Cr Clr Drug Dosing 43.43 mL/min Estimated GFR (MDRD) 49 L (>60) Glucose 99 (74-106) mg/dL Calcium 9.0 D (8.5-10.1) mg/dL C-Reactive Protein 0.06 (0.0-0.3) mg/dL Urine Color Yellow (YELLOW) Urine Appearance Clear (CLEAR) Urine pH 6.0 (5.0-8.0) Ur Specific [place] 1.025 (1.008-1.030) Urine Protein Negative (NEGATIVE) mg/dL Urine Glucose (UA) Negative (NEGATIVE) mg/dL Urine Ketones Trace H (NEGATIVE) mg/dL Urine Occult Blood Negative (NEGATIVE) Urine Nitrite Negative (NEGATIVE) Urine Bilirubin Negative (NEGATIVE) Urine Urobilinogen 0.2 (0.2-1.0) EU/dL Ur Leukocyte Esterase Negative (NEGATIVE) Urine RBC 0-5 (0-5) Urine WBC 0-5 (0-5) Ur Epithelial Cells Few Amorphous Sediment Not seen Urine Bacteria Not seen Urine Mucus Moderate Result Diagrams: 01/28/20 18:14 01/28/20 18:14 Sepsis Event Note - Evaluation Sepsis Screening Result: No Definite Risk - Focused Exam Vital Signs: Vital Signs Temp Pulse Resp BP Pulse Ox 01/28/20 17:54 35.6 C L 50 L 22 H 141/80 H 100 - Problem List (1) SBO (small bowel obstruction) SNOMED Code(s): 523130521 ICD Code: K56.609 - UNSP INTESTNL OBST, UNSP TO PARTIAL VERSUS COMPLETE OBST Status: Acute Priority: High Current Visit: Yes (2) Essential hypertension SNOMED Code(s): 29344765 ICD Code: I10 - ESSENTIAL (PRIMARY) HYPERTENSION Status: Chronic Current Visit: No (3) Rheumatoid arteritis SNOMED Code(s): 641000511 ICD Code: M05.20 - RHEUMATOID VASCULITIS WITH RHEUMATOID ARTHRITIS OF UNSP SITE Status: Chronic Current Visit: No Problem List Initiated/Reviewed/Updated: Yes Orders Last 24hrs: Active Orders 24 hr Category Date Time Status Patient Status Manage Transfer [TRANSFER] Routine ADT 01/28/20 20:55 Ordered Bladder Scan [RC] ASDIRECTED Care 01/28/20 18:01 Active Iopamidol [Isovue-300 (61%)] Med 01/28/20 19:00 Active 100 ml IV . DIRECTED Sodium Chloride 0.9% [Normal Saline] 80 ml Med 01/28/20 19:00 Active IV ASDIRECTED Sodium Chloride 0.9% [Saline Flush] Med 01/28/20 18:14 Active 10 ml FLUSH ASDIRECTED PRN Saline Lock Insert [OM.PC] Routine Oth 01/28/20 18:14 Ordered Resuscitation Status Routine Resus Stat 01/28/20 20:57 Ordered Medication Orders Sodium Chloride (Normal Saline) 80 mls @ 3 mls/sec IV ASDIRECTED CARLY Last Admin: 01/28/20 19:24 Dose: 3 mls/sec Documented by: JACK Iopamidol (Isovue-300 (61%)) 100 ml IV . DIRECTED CARLY Last Admin: 01/28/20 19:24 Dose: 100 ml Documented by: JACK Sodium Chloride (Saline Flush) 10 ml FLUSH ASDIRECTED PRN PRN Reason: Keep Vein Open Last Admin: 01/28/20 19:24 Dose: 10 ml Documented by: Admin: 01/28/20 18:32 Dose: 10 ml Documented by: FARRUKH Assessment/Plan Comment:: ASSESSMENT / PLAN- Small Bowel Obstruction Mr. Rankin reports sudden onset of abdominal pain with nausea at noon after eating 2 cookies and a bottle of Ensure. He feel intense pain in waves all day and into the evening he could not longer tolerate the pain came to the ER. Reports he is normally healthy with daily swimming,lifting wts, eats healthy, non-smoker, non-drinking and no drugs. Vital signs stable TPR 35.6-50-22 B/P 141/80 O2 sat 100% Labs CBC normal range, BMP normal range, UA +ketones. Imaging Abdominal pelvic CT shows early small bowel obstruction with transition point at anastomotic suture line in the right lower quadrant small bowel, colonic diverticulosis, nonobstructive bilateral nephrolithiasis, status post prostatectomy. Meds- IV fluids LR then NS, given Dilaudid 0.5mg which he promptly had 300+ emesis of cream white liquids. Given Zofran 4mg IV. No further vomiting. discussed with Mr. Rankin will need a NG tube placement if vomiting continues but most likely this was from the Dilaudid as he is sensitive to Morphine. Consult to Surgeon Dr. Kay- advise admission with NPO, pain control, IV fluids, antiemetics, with evaluation in am. Discussed with Mr. Rankin plan of care. agrees to admission. SMALL BOWEL OBSTRUCTION- -Admit to ICU Med-Surg overflow for further monitoring -IV Fluids NS 125 mL per hour. -IV Zofran 4mg every 6 hours as needed for nausea -IV Fentanyl 25 mcg every 6 hours for pain control -may need to titrated higher dose for pain control -continuous pulse ox. while IV narcotics -Advise to notify nurses of any fever or worsen pain -evaluated for increase in nausea/vomiting - will need NG tube placement -a.m. labs: CBC, BMP HYPERTENSION -Telemetry 4 hours then discontinue if Normal Sinus -Atenolol 100mg po daily -Lipitor 100 mg at bedtime- hold Rheumatoid Arthritis -Prednisone 5 mg po daily Maintenance issues -Orders home meds: chronic medication -Nutrition: NPO -Delacruz catheter: not indicated -DVT: SCD -PPI; IV Protonix 40mg daily -tobacco- non-smoker CODE STATUS: FULL Admission status: Admit to ICU Med-Surg Overflow Admission justification. This patient will be admitted for inpatient services and is medically appropriate meeting medical necessity for inpatient admission as outlined in my documentation. I reasonably expect the patient will require inpatient services that span. Time over 2 midnights. I reasonably expect this patient to be discharged or transferred within 96 hours after admission to the critical access hospital. Disposition: home with Echo Primary care provider: Dr. Stoll, [facility] Hospitalist: Dr. Hawkins Surgery Service: Dr. Kay - Mortality Measure Prognosis:: Good
[2020-01-28] MEDS ORDERED: Ondansetron 4 MG/2 ML SDV IV PRN (21:39)
[2020-01-28] MEDS ORDERED: fentaNYL 100 MCG/2 ML SDV IVPUSH PRN (21:39)
[2020-01-28] MEDS: Pantoprazole 40 MG Vial IV SCH (21:57)
[2020-01-28] MEDS: Sodium Chloride 0.9% 1,000 ML IV SCH (22:29)
[2020-01-29] MEDS: fentaNYL 100 MCG/2 ML SDV IVPUSH PRN ×2 (00:32→02:35)
[2020-01-29] MEDS: Sodium Chloride 0.9% 1,000 ML IV SCH (05:45)
--- NOTE | 2020-01-29 09:44 | CR ---
Abdomen 2V AP Upright Decub CLINICAL HISTORY: SBO FINDINGS: There are a few scattered dilated loops of small bowel. There is an air-fluid level in the right abdomen near midline. There is gas and feces in the colon. No free air is identified. There are bilateral renal calculi left greater than right. IMPRESSION: Small bowel distention in a nonspecific pattern. Small bilateral renal calculi
[2020-01-29] MEDS: predniSONE 5 MG Tab PO SCH (09:52)
[2020-01-29] MEDS: Atenolol 25 MG Tab PO SCH (09:52)
[2020-01-29] MEDS: Magnesium Hydroxide 400 MG/5 ML Susp 30 ML Cup PO SCH ×2 (11:42→21:55)
[2020-01-29] MEDS: oxyCODONE 5 MG Tab PO PRN ×3 (12:44→20:33)
--- NOTE | 2020-01-29 12:50 | PCM.PN ---
- General Info Date of Service: 01/29/20 Subjective Update: Mr. Rankin is a 74-year-old gentleman who was admitted through the emergency department last night with abdominal pain nausea and vomiting secondary to early small bowel obstruction. Symptoms started during the day yesterday, on evaluation in the emergency department was noted to have evidence of early small bowel obstruction identified on CT scan of the abdomen and pelvis. He was admitted with IV fluids and pain medication as needed. He did have an episode of vomiting at approximately 5 AM this morning but now has had a bowel movement and is feeling better with no further abdominal pain. - Review of Systems General: Denies: Fever, Chills Pulmonary: Reports: No Symptoms Cardiovascular: Reports: No Symptoms Gastrointestinal: Reports: Flatus. Denies: Abdominal Pain, Difficulty Swallowing, Nausea, Vomiting Genitourinary: Reports: No Symptoms - Patient Data Vitals - Most Recent: Last Vital Signs Temp 98 F 01/29/20 12:00 Pulse 52 L 01/29/20 09:52 Resp 9 L 01/29/20 12:00 BP 134/71 01/29/20 12:00 Pulse Ox 97 01/29/20 12:00 Weight - Most Recent: 155 lb 15.985 oz I&O - Last 24 Hours: Intake & Output 01/28/20 01/29/20 01/29/20 22:59 06:59 14:59 Intake Total 1029 Output Total 1 625 150 Balance -1 404 -150 Lab Results Last 24 Hours: Laboratory Results - last 24 hr 01/28/20 01/28/20 01/28/20 Range/Units 18:01 18:14 18:14 WBC 8.0 (4.5-11.0) K/uL RBC 4.79 (4.30-5.90) M/uL Hgb 15.2 H D (12.0-15.0) g/dL Hct 45.1 (40.0-54.0) % MCV 94 (80-98) fL MCH 32 H (27-31) pg MCHC 34 (32-36) % Plt Count 286 (150-400) K/uL Neut % (Auto) (36-66) % Lymph % (Auto) (24-44) % [place] % (Auto) (2-6) % Eos % (Auto) (2-4) % Baso % (Auto) (0-1) % Sodium 142 (140-148) mmol/L Potassium 4.0 (3.6-5.2) mmol/L Chloride 106 (100-108) mmol/L Carbon Dioxide 26 (21-32) mmol/L Anion Gap 10.3 (5.0-14.0) mmol/L BUN 30 H D (7-18) mg/dL Creatinine 1.4 H D (0.8-1.3) mg/dL Est Cr Clr Drug Dosing 43.43 mL/min Estimated GFR (MDRD) 49 L (>60) Glucose 99 (74-106) mg/dL Calcium 9.0 D (8.5-10.1) mg/dL C-Reactive Protein 0.06 (0.0-0.3) mg/dL Urine Color Yellow (YELLOW) Urine Appearance Clear (CLEAR) Urine pH 6.0 (5.0-8.0) Ur Specific [place] 1.025 (1.008-1.030) Urine Protein Negative (NEGATIVE) mg/dL Urine Glucose (UA) Negative (NEGATIVE) mg/dL Urine Ketones Trace H (NEGATIVE) mg/dL Urine Occult Blood Negative (NEGATIVE) Urine Nitrite Negative (NEGATIVE) Urine Bilirubin Negative (NEGATIVE) Urine Urobilinogen 0.2 (0.2-1.0) EU/dL Ur Leukocyte Esterase Negative (NEGATIVE) Urine RBC 0-5 (0-5) Urine WBC 0-5 (0-5) Ur Epithelial Cells Few Amorphous Sediment Not seen Urine Bacteria Not seen Urine Mucus Moderate 01/29/20 01/29/20 Range/Units 04:20 04:30 WBC 6.6 (4.5-11.0) K/uL RBC 4.13 L (4.30-5.90) M/uL Hgb 13.1 D (12.0-15.0) g/dL Hct 39.4 L (40.0-54.0) % MCV 95 (80-98) fL MCH 32 H (27-31) pg MCHC 33 (32-36) % Plt Count 256 (150-400) K/uL Neut % (Auto) 63 (36-66) % Lymph % (Auto) 21 L (24-44) % [place] % (Auto) 13 H (2-6) % Eos % (Auto) 3 (2-4) % Baso % (Auto) 0 (0-1) % Sodium 143 (140-148) mmol/L Potassium 3.6 (3.6-5.2) mmol/L Chloride 108 (100-108) mmol/L Carbon Dioxide 26 (21-32) mmol/L Anion Gap 8.7 (5.0-14.0) mmol/L BUN 22 H (7-18) mg/dL Creatinine 1.3 (0.8-1.3) mg/dL Est Cr Clr Drug Dosing 47.16 mL/min Estimated GFR (MDRD) 54 L (>60) Glucose 108 H (74-106) mg/dL Calcium 8.2 L (8.5-10.1) mg/dL C-Reactive Protein (0.0-0.3) mg/dL Urine Color (YELLOW) Urine Appearance (CLEAR) Urine pH (5.0-8.0) Ur Specific [place] (1.008-1.030) Urine Protein (NEGATIVE) mg/dL Urine Glucose (UA) (NEGATIVE) mg/dL Urine Ketones (NEGATIVE) mg/dL Urine Occult Blood (NEGATIVE) Urine Nitrite (NEGATIVE) Urine Bilirubin (NEGATIVE) Urine Urobilinogen (0.2-1.0) EU/dL Ur Leukocyte Esterase (NEGATIVE) Urine RBC (0-5) Urine WBC (0-5) Ur Epithelial Cells Amorphous Sediment Urine Bacteria Urine Mucus Med Orders - Current: Current Medications Atenolol (Tenormin) 100 mg PO DAILY [facility] Last Admin: 01/29/20 09:52 Dose: 100 mg Documented by: Fentanyl (Sublimaze) 25 mcg IVPUSH Q2H PRN PRN Reason: Abdominal Pain Last Admin: 01/29/20 02:35 Dose: 25 mcg Documented by: Magnesium Hydroxide (Milk Of Magnesia) 30 ml PO BID [facility] Last Admin: 01/29/20 11:42 Dose: 30 ml Documented by: Ondansetron HCl (Zofran) 4 mg IV Q4H PRN PRN Reason: Nausea/Vomiting Last Admin: 01/29/20 05:54 Dose: 4 mg Documented by: Oxycodone HCl (Oxycodone) 5 mg PO Q4H PRN PRN Reason: Pain Last Admin: 01/29/20 12:44 Dose: 5 mg Documented by: Pantoprazole Sodium (Protonix Iv) 40 mg IV BEDTIME [facility] Last Admin: 01/28/20 21:57 Dose: 40 mg Documented by: Prednisone (Prednisone) 5 mg PO DAILY [facility] Last Admin: 01/29/20 09:52 Dose: 5 mg Documented by: Discontinued Medications Fentanyl (Sublimaze) 25 mcg IVPUSH Q6H PRN PRN Reason: Abdominal Pain Stop: 01/29/20 00:00 Last Admin: 01/28/20 21:52 Dose: 25 mcg Documented by: Hydromorphone HCl (Dilaudid) 0.5 mg IVPUSH ONETIME ONE Stop: 01/28/20 20:17 Last Admin: 01/28/20 20:28 Dose: 0.5 mg Documented by: Lactated Ringer's (Ringers, Lactated) 1,000 mls @ 1,000 mls/hr IV BOLUS ONE Stop: 01/28/20 19:46 Last Admin: 01/28/20 18:54 Dose: 1,000 mls/hr Documented by: Sodium Chloride (Normal Saline) 80 mls @ 3 mls/sec IV ASDIRECTED [facility] Last Admin: 01/28/20 19:24 Dose: 3 mls/sec Documented by: Sodium Chloride (Normal Saline) 1,000 mls @ 125 mls/hr IV ASDIRECTED [facility] Last Admin: 01/29/20 05:45 Dose: 125 mls/hr Documented by: Iopamidol (Isovue-300 (61%)) 100 ml IV . DIRECTED [facility] Last Admin: 01/28/20 19:24 Dose: 100 ml Documented by: Ondansetron HCl (Zofran) 4 mg IVPUSH ONETIME ONE Stop: 01/28/20 20:34 Last Admin: 01/28/20 20:34 Dose: 4 mg Documented by: Ondansetron HCl (Zofran) Confirm Administered Dose 4 mg .ROUTE .STK-MED ONE Stop: 01/28/20 20:31 Last Admin: 01/28/20 20:34 Dose: Not Given Documented by: Sodium Chloride (Saline Flush) 10 ml FLUSH ASDIRECTED PRN PRN Reason: Keep Vein Open Last Admin: 01/28/20 19:24 Dose: 10 ml Documented by: - Exam General: Alert, Oriented, Cooperative, No Acute Distress Lungs: Clear to Auscultation, Normal Respiratory Effort Cardiovascular: Regular Rate, Regular Rhythm, No Murmurs GI/Abdominal Exam: Soft, Non-Tender, No Organomegaly, No Distention Extremities: Non-Tender, No Pedal Edema Sepsis Event Note - Evaluation Sepsis Screening Result: No Definite Risk - Focused Exam Vital Signs: Vital Signs Temp Pulse Pulse Resp BP BP Pulse Ox 01/29/20 12:00 98 F 9 L 134/71 97 01/29/20 09:52 52 L 125/73 01/29/20 08:00 97.3 F 52 L 11 L 125/73 97 01/29/20 04:00 98.3 F 11 L 131/70 98 - Problem List Review Problem List Initiated/Reviewed/Updated: Yes - My Orders Last 24 Hours: My Active Orders 01/29/20 12:30 oxyCODONE 5 mg PO Q4H PRN 01/29/20 12:45 Convert IV to Saline Lock [OM.PC] Routine 01/29/20 Dinner Clear Liquid Diet [DIET] 01/30/20 05:00 BASIC METABOLIC PANEL,BMP [CHEM] Timed - Plan Plan:: ASSESSMENT / PLAN SMALL BOWEL OBSTRUCTION-he has had no further pain and is now had a bowel movement -Admit to ICU Med-Surg overflow for further monitoring -Saline lock IV -IV Zofran 4mg every 6 hours as needed for nausea -IV Fentanyl 25 mcg every 6 hours for pain control -may need to titrated higher dose for pain control -continuous pulse ox. while IV narcotics -Clear liquid diet -Surgical consult Dr. Kay HYPERTENSION -Atenolol 100mg po daily -Lipitor 100 mg at bedtime- hold Rheumatoid Arthritis -Prednisone 5 mg po daily Maintenance issues -Orders home meds: chronic medication -Nutrition: Clear liquid diet -Delacruz catheter: not indicated -DVT: SCD -PPI; IV Protonix 40mg daily -tobacco- non-smoker CODE STATUS: FULL Admission status: Admit to ICU Med-Surg Overflow Admission justification. This patient will be admitted for inpatient services and is medically appropriate meeting medical necessity for inpatient admission as outlined in my documentation. I reasonably expect the patient will require inpatient services that span. Time over 2 midnights. I reasonably expect this patient to be discharged or transferred within 96 hours after admission to the critical access hospital. Disposition: home with Echo Primary care provider: Dr. Stoll, [facility] Hospitalist: Dr. Hawkins Surgery Service: Dr. Kay
[2020-01-29] MEDS: Pantoprazole 40 MG Vial IV SCH (20:34)
[2020-01-30] MEDS: oxyCODONE 5 MG Tab PO PRN (02:27)
--- NOTE | 2020-01-30 06:33 | CRLCR ---
INDICATION: Follow-up small bowel obstruction COMPARISON: From yesterday FINDINGS: Erect and supine films of the abdomen were obtained. The previously seen mildly dilated small bowel loops in the central and right upper abdomen resolved. Findings are that of resolution of small bowel obstruction. In the abdomen, there is no sign of distention of the small bowel or colon to suggest obstruction or ileus. There is no sign of free air or distinct mass. Again seen are numerous surgical clips in the inferior pelvis bilaterally consistent with prostatectomy and lymph node dissection. Again seen is moderate right and mild left hip primary osteoarthritis. There is moderate narrowing of the joint space on the right and mild narrowing of the joint space on the left. There is mild sclerosis of the articular surfaces bilaterally. The rest of the osseous structures are unremarkable. The lung bases are clear. IMPRESSION: Resolution of previously seen small bowel obstruction. Bowel gas pattern is unremarkable now. Again seen are changes of prostatectomy and bilateral lymph node dissection. Stable moderate right and mild left hip primary osteoarthritis. Dictated by Ramy Blackwood MD @ Jan 30 2020 6:29AM Signed by Dr. Ramy Blackwood @ Jan 30 2020 6:32AM
[2020-01-30] MEDS: predniSONE 5 MG Tab PO SCH (09:07)
[2020-01-30] MEDS: Magnesium Hydroxide 400 MG/5 ML Susp 30 ML Cup PO SCH (09:07)
[2020-01-30] MEDS: Atenolol 25 MG Tab PO SCH (09:10)
--- NOTE | 2020-01-30 09:55 | PCM.DCSUM1 ---
Discharge Summary - Hospital Course Brief History: Mr. Rankin is a 74-year-old gentleman who was admitted through the emergency department with nausea, vomiting, and abdominal pain, secondary to early small bowel obstruction. - Discharge Data Discharge Date: 01/30/20 Discharge Disposition: Home, Self-Care 01 Condition: Fair - Referral to Home Health Primary Care Physician: Rob Stoll MD - Discharge Diagnosis/Problem(s) (1) SBO (small bowel obstruction) SNOMED Code(s): 673915717 ICD Code: K56.609 - UNSP INTESTNL OBST, UNSP TO PARTIAL VERSUS COMPLETE OBST Status: Acute Current Visit: Yes - Patient Summary/Data Consults: Consultations 01/28/20 21:39 Consult to Physician [CONS] Routine Consulting Provider: Imtiaz Kay Call Completed to Consulting Physician: Yes: ER MD called at 8 pm. admission Reason for Consult: SBO Person Notified: Dr. Kay Date Notified: 01/28/20 Time Notified: 20:00 Special Instructions: admit Hospital Course: Mr. Rankin is a 74-year-old gentleman who was admitted through the emergency department with abdominal pain nausea and vomiting secondary to early small bowel obstruction. Symptoms started during the day, on evaluation in the emergency department was noted to have evidence of early small bowel obstruction identified on CT scan of the abdomen and pelvis. He was admitted with IV fluids and pain medication as needed. He did have an episode of vomiting. Nominal pain resolved shortly after admission but he did have some ongoing difficulty with nausea and vomiting. The day after admission he began to have bowel movements and by the following morning x-ray of the abdomen showed resolution of obstruction. He remained afebrile and was hemodynamically stable. He tolerated a soft low residue diet prior to discharge. Follow-up appointment will be scheduled with his primary care provider within 1 week. Activity will be as tolerated and he will remain on a soft low residue diet. - Patient Instructions Diet: GI Soft/Low Residue/Low Fiber Activity: As Tolerated Other/Special Instructions: Please schedule follow-up appointment with Dr. Stoll within 1 week. - Discharge Plan *PRESCRIPTION DRUG MONITORING PROGRAM REVIEWED*: Not Applicable *COPY OF PRESCRIPTION DRUG MONITORING REPORT IN PATIENT KATHARINE: Not Applicable Home Medications: Home Meds atenoloL [Atenolol] 100 mg PO DAILY 12/03/17 [History] atorvaSTATin [Lipitor] 100 mg PO BEDTIME 12/03/17 [History] predniSONE [Prednisone] 5 mg PO DAILY 11/18/18 [History] Referrals: Rob Stoll MD [Primary Care Provider] - - Discharge Summary/Plan Comment DC Time >30 min.: No - Patient Data Vitals - Most Recent: Last Vital Signs Temp 97.4 F 01/30/20 08:00 Pulse 52 L 01/30/20 09:10 Resp 18 01/30/20 08:00 BP 130/70 01/30/20 09:10 Pulse Ox 96 01/30/20 08:00 Weight - Most Recent: 155 lb 15.985 oz I&O - Last 24 hours: Intake & Output 01/29/20 01/30/20 01/30/20 22:59 06:59 14:59 Output Total 200 Balance -200 Lab Results - Last 24 hrs: Laboratory Results - last 24 hr 01/30/20 Range/Units 05:20 Sodium 141 (140-148) mmol/L Potassium 3.9 (3.6-5.2) mmol/L Chloride 106 (100-108) mmol/L Carbon Dioxide 29 (21-32) mmol/L Anion Gap 6.4 (5.0-14.0) mmol/L BUN 13 (7-18) mg/dL Creatinine 1.2 (0.8-1.3) mg/dL Est Cr Clr Drug Dosing 50.85 mL/min Estimated GFR (MDRD) 59 L (>60) Glucose 88 (74-106) mg/dL Calcium 8.1 L (8.5-10.1) mg/dL Med Orders - Current: Current Medications Atenolol (Tenormin) 100 mg PO DAILY [facility] Last Admin: 01/30/20 09:10 Dose: 100 mg Documented by: Fentanyl (Sublimaze) 25 mcg IVPUSH Q2H PRN PRN Reason: Abdominal Pain Last Admin: 01/29/20 02:35 Dose: 25 mcg Documented by: Ondansetron HCl (Zofran) 4 mg IV Q4H PRN PRN Reason: Nausea/Vomiting Last Admin: 01/29/20 05:54 Dose: 4 mg Documented by: Oxycodone HCl (Oxycodone) 5 mg PO Q4H PRN PRN Reason: Pain Last Admin: 01/30/20 02:27 Dose: 5 mg Documented by: Pantoprazole Sodium (Protonix Iv) 40 mg IV BEDTIME [facility] Last Admin: 01/29/20 20:34 Dose: 40 mg Documented by: Prednisone (Prednisone) 5 mg PO DAILY [facility] Last Admin: 01/30/20 09:07 Dose: 5 mg Documented by: Discontinued Medications Fentanyl (Sublimaze) 25 mcg IVPUSH Q6H PRN PRN Reason: Abdominal Pain Stop: 01/29/20 00:00 Last Admin: 01/28/20 21:52 Dose: 25 mcg Documented by: Hydromorphone HCl (Dilaudid) 0.5 mg IVPUSH ONETIME ONE Stop: 01/28/20 20:17 Last Admin: 01/28/20 20:28 Dose: 0.5 mg Documented by: Lactated Ringer's (Ringers, Lactated) 1,000 mls @ 1,000 mls/hr IV BOLUS ONE Stop: 01/28/20 19:46 Last Admin: 01/28/20 18:54 Dose: 1,000 mls/hr Documented by: Sodium Chloride (Normal Saline) 80 mls @ 3 mls/sec IV ASDIRECTED [facility] Last Admin: 01/28/20 19:24 Dose: 3 mls/sec Documented by: Sodium Chloride (Normal Saline) 1,000 mls @ 125 mls/hr IV ASDIRECTED [facility] Last Admin: 01/29/20 05:45 Dose: 125 mls/hr Documented by: Iopamidol (Isovue-300 (61%)) 100 ml IV . DIRECTED [facility] Last Admin: 01/28/20 19:24 Dose: 100 ml Documented by: Magnesium Hydroxide (Milk Of Magnesia) 30 ml PO BID [facility] Last Admin: 01/30/20 09:07 Dose: Not Given Documented by: Ondansetron HCl (Zofran) 4 mg IVPUSH ONETIME ONE Stop: 01/28/20 20:34 Last Admin: 01/28/20 20:34 Dose: 4 mg Documented by: Ondansetron HCl (Zofran) Confirm Administered Dose 4 mg .ROUTE .STK-MED ONE Stop: 01/28/20 20:31 Last Admin: 01/28/20 20:34 Dose: Not Given Documented by: Sodium Chloride (Saline Flush) 10 ml FLUSH ASDIRECTED PRN PRN Reason: Keep Vein Open Last Admin: 01/28/20 19:24 Dose: 10 ml Documented by: - Exam Quality Assessment: Reports: DVT Prophylaxis General: Reports: Alert, Oriented, Cooperative, No Acute Distress Lungs: Reports: Clear to Auscultation, Normal Respiratory Effort Cardiovascular: Reports: Regular Rate, Regular Rhythm, No Murmurs GI/Abdominal Exam: Soft, Non-Tender, No Organomegaly, No Distention
--- NOTE | 2020-01-31 16:27 | CONS ---
DATE OF SERVICE: 01/31/2020 REFERRING PHYSICIAN: CONSULTING PHYSICIAN: Imtiaz Kay MD REASON FOR CONSULTATION: Evaluation of abdominal pain. HISTORY OF PRESENT ILLNESS: Pleasant 74-year-old male who is admitted to the emergency room with abdominal pain and there was concern of bowel obstruction. The patient's last bowel movement was in last 24 hours. Pain is 1 to 2 out of 10 with no nausea, vomiting, shortness of breath, or chest pain. REVIEW OF SYSTEMS: HEENT: Hearing loss bilaterally. CARDIOVASCULAR: No history of myocardial infarction. GASTROINTESTINAL: Extensive diverticulosis history which includes Eros procedure and colostomy takedown and complications associated with that at another facility. MUSCULOSKELETAL: Chronic arthritis. PSYCHIATRIC: No abnormalities. GENITOURINARY: No abnormalities. Remainder of review of systems is reviewed and is negative. PHYSICAL EXAMINATION: VITAL SIGNS: Stable. Temperature 98.7, blood pressure 111/62, pulse 48, respirations 16, and 96% on room air. HEENT: Pupils are equal. NECK: Supple. LUNGS: Clear. CARDIOVASCULAR: Regular rhythm and rate. ABDOMEN: Nontender, nondistended. No pain with palpation. EXTREMITIES: Full range of motion. NEUROLOGIC: Oriented x3. PSYCHIATRIC: No gross depression. IMAGING DATA: I did review the CT scan, which suggests a partial small-bowel obstruction. ASSESSMENT: The patient is doing well. His symptoms do not seem to with CT scan findings as his pain is minimal. His abdomen is flat and he is having normal bowel movements. PLAN: The patient will probably be discharged in next 24 hours per Hospital Service. Imtiaz Kay MD /[id number]
== END 2020-01-30 12:00 | disposition home or self-care (01) | DRG 390 ==
LOC: JP.ED 17:12 → JP.ICU 20:55
PROVIDERS: ADMIT Hospitalist; ATTEND Hospitalist
DX: K56.609 Unspecified intestinal obstruction, unspecified as to partial versus complete obstruction (principal); H91.90 Unspecified hearing loss, unspecified ear; I10 Essential (primary) hypertension; K57.90 Diverticulosis of intestine, part unspecified, without perforation or abscess without bleeding; M19.90 Unspecified osteoarthritis, unspecified site; Z85.46 Personal history of malignant neoplasm of prostate; Z90.79 Acquired absence of other genital organ(s); Z87.442 Personal history of urinary calculi; E89.0 Postprocedural hypothyroidism; Z98.890 Other specified postprocedural states; M05.20 Rheumatoid vasculitis with rheumatoid arthritis of unspecified site; K57.30 Diverticulosis of large intestine without perforation or abscess without bleeding; Z79.899 Other long term (current) drug therapy; N20.0 Calculus of kidney; Z79.52 Long term (current) use of systemic steroids; Z88.1 Allergy status to other antibiotic agents
CPT/HCPCS: 36415; 51798; 74177; 80048; 81001; 85027; 86140; 96374; 96375; 99285; J1170; J2405; J7050; J7120; Q9967; 74019; 74021; 74021-26; 85025; A9270-GY; C9113; J3010; J7030; J7512

== ENCOUNTER 2023-03-24 01:00 | Inpatient (IN) | payer MEDICARE, OTHER ==
[2023-03-24 01:42] LABS: BASOPHILS ABSOLUTE AUTO 0.03 K/uL (0.00-0.10); BASOPHILS PERCENT AUTO 0.4 % (0.1-1.3); EOSINOPHILS ABSOLUTE AUTO 0.12 K/uL (0.00-0.40); EOSINOPHILS PERCENT AUTO 1.5 % (0.0-5.4); HEMATOCRIT 43.9 % (38.4-49.7); HEMOGLOBIN 15.4 g/dL (12.9-16.9); IMMATURE GRAN ABSOLUTE AUTO 0.03 K/uL (0.00-0.23); IMMATURE GRAN PERCENT AUTO 0.4 % (0.0-0.7); LYMPHOCYTES ABSOLUTE AUTO 0.76 K/uL (0.8-3.3); LYMPHOCYTES PERCENT AUTO 9.5 % (11.4-47.7); MEAN CORPUSCULAR HEMOGLOBIN 33.6 pg (31.6-35.5); MEAN CORPUSCULAR HGB CONC 35.1 g/dL (31.6-35.5); MEAN CORPUSCULAR VOLUME 95.9 fL (81.4-99.0); MONOCYTES ABSOLUTE AUTO 0.75 K/uL (0.20-0.90); MONOCYTES PERCENT AUTO 9.4 % (3.3-12.6); NEUTROPHILS ABSOLUTE AUTO 6.27 K/uL (1.0-7.6); NEUTROPHILS PERCENT AUTO 78.8 % (40.0-78.1); PLATELET COUNT,PLT 235 K/uL (130-375); RED BLOOD CELL COUNT 4.58 M/uL (4.14-5.76)
[2023-03-24 02:16] LABS: A/G RATIO 1.1 (1.2-2.2); ALANINE AMINOTRANSFERASE,ALT 25 U/L (12-78); ALBUMIN 3.6 g/dL (3.4-5.0); ALKALINE PHOSPHATASE 73 U/L (46-116); ANION GAP 11.7 mmol/L (5.0-14.0); ASPARTATE AMNIOTRANSFERASE,AST 30 U/L (15-37); BILIRUBIN TOTAL 0.7 mg/dL (0.2-1.0); BLOOD UREA NITROGEN,BUN 17 mg/dL (7-18); C-REACTIVE PROTEIN 0.45 mg/dL (0.0-0.3); CALCIUM 8.6 mg/dL (8.5-10.1); CARBON DIOXIDE,CO2 28 mmol/L (21-32); CHLORIDE,CL 104 mmol/L (100-108); CREATININE 1.2 mg/dL (0.8-1.3); EST CRCL DRUG DOSING (CG) 48.29 mL/min; ESTIMATED GFR 62 mL/min (>60); GLUCOSE RANDOM 122 mg/dL (74-106); POTASSIUM,K 3.9 mmol/L (3.6-5.2); SODIUM,NA 144 mmol/L (140-148)
[2023-03-24] MEDS ORDERED: Ondansetron 4 MG/2 ML SDV IVPUSH ONE (02:48)
[2023-03-24] MEDS ORDERED: Ketorolac 15 MG/ML SDV IVPUSH ONE (03:19)
[2023-03-24] MEDS ORDERED: Sodium Chloride 0.9% 1,000 ML IV SCH ×2 (03:45→04:56)
[2023-03-24] MEDS ORDERED: Morphine 2 MG/ML SYRINGE IVPUSH PRN (04:56)
[2023-03-24] MEDS ORDERED: LORazepam 2 MG/ML SDV IV PRN (04:56)
[2023-03-24] MEDS ORDERED: Naloxone 0.4 MG/ML SDV IVPUSH PRN (04:56)
[2023-03-24] MEDS ORDERED: Ondansetron 4 MG/2 ML SDV IV PRN (04:56)
[2023-03-24 07:20] LABS: APPEARANCE,URINE CLEAR (CLEAR); BILIRUBIN,URINE SMALL (NEGATIVE); COLOR,URINE YELLOW (YELLOW); GLUCOSE,URINE NEGATIVE (NEGATIVE); KETONES,URINE TRACE mg/dL (NEGATIVE); LEUKOCYTE ESTERASE,URINE NEGATIVE (NEGATIVE); NITRITE,URINE NEGATIVE (NEGATIVE); OCCULT BLOOD,URINE SMALL (NEGATIVE); PH,URINE 7.5 (5.0-8.0); PROTEIN,URINE 100 mg/dL (NEGATIVE)
[2023-03-24 07:28] LABS: AMORPHOUS SEDIMENT,URINE RARE; BACTERIA,URINE NOT SEEN; EPITHELIAL CELLS,URINE RARE; MUCUS,URINE MODERATE; WBC,URINE 0-5 (0-5)
[2023-03-24] MEDS: predniSONE 5 MG Tab PO SCH (08:50)
[2023-03-24] MEDS: Metoprolol Succinate 50 MG Tab.ER PO SCH (08:51)
[2023-03-24] MEDS: Pantoprazole 40 MG Vial IV SCH (08:54)
[2023-03-24] MEDS: Sodium Chloride 0.9% 1,000 ML IV SCH ×2 (11:56→23:20)
[2023-03-25 05:06] LABS: CALCIUM 7.5 mg/dL (8.5-10.1); CREATININE 1.2 mg/dL (0.8-1.3); EST CRCL DRUG DOSING (CG) 48.29 mL/min; POTASSIUM,K 4.2 mmol/L (3.6-5.2)
[2023-03-25 05:12] LABS: ANION GAP 12.2 mmol/L (5.0-14.0)
[2023-03-25] MEDS: predniSONE 5 MG Tab PO SCH (09:47)
[2023-03-25] MEDS: Pantoprazole 40 MG Vial IV SCH (09:50)
[2023-03-25] MEDS: Metoprolol Succinate 50 MG Tab.ER PO SCH (09:55)
== END 2023-03-25 14:10 | disposition home or self-care (01) | DRG 390 ==
LOC: JP.ED 01:00 → JP.MS 04:28
PROVIDERS: ADMIT Hospitalist; ATTEND Internal Medicine
DX: K56.51 Intestinal adhesions [bands], with partial obstruction (principal); K56.609 Unspecified intestinal obstruction, unspecified as to partial versus complete obstruction; M19.90 Unspecified osteoarthritis, unspecified site; E86.0 Dehydration; M05.20 Rheumatoid vasculitis with rheumatoid arthritis of unspecified site; Z11.52 Encounter for screening for COVID-19; Z85.46 Personal history of malignant neoplasm of prostate; Z87.442 Personal history of urinary calculi; Z98.890 Other specified postprocedural states; Z88.1 Allergy status to other antibiotic agents; I10 Essential (primary) hypertension; E89.0 Postprocedural hypothyroidism; Z79.899 Other long term (current) drug therapy
CPT/HCPCS: 36415; 74176; 80053; 83605; 83690; 85025; 86140; 96361; 96374; 96375; 99285; J1885; J2405; J7030; U0002; 74019; 74019-26; 74021; 74021-26; 80048; 81001; 99222; 99238; A9270-GY; C9113; J7512

== ENCOUNTER 2023-09-20 08:25 | Emergency (ER) | payer MEDICARE, OTHER ==
[2023-09-20 10:13] LABS: BASOPHILS ABSOLUTE AUTO 0.03 K/uL (0.00-0.10); BASOPHILS PERCENT AUTO 0.4 % (0.1-1.3); EOSINOPHILS ABSOLUTE AUTO 0.21 K/uL (0.00-0.40); EOSINOPHILS PERCENT AUTO 2.8 % (0.0-5.4); HEMATOCRIT 40.8 % (38.4-49.7); HEMOGLOBIN 14.5 g/dL (12.9-16.9); IMMATURE GRAN ABSOLUTE AUTO 0.03 K/uL (0.00-0.23); IMMATURE GRAN PERCENT AUTO 0.4 % (0.0-0.7); LYMPHOCYTES ABSOLUTE AUTO 0.84 K/uL (0.8-3.3); LYMPHOCYTES PERCENT AUTO 11.2 % (11.4-47.7); MEAN CORPUSCULAR HEMOGLOBIN 33.9 pg (31.6-35.5); MEAN CORPUSCULAR HGB CONC 35.5 g/dL (31.6-35.5); MEAN CORPUSCULAR VOLUME 95.3 fL (81.4-99.0); MONOCYTES ABSOLUTE AUTO 0.74 K/uL (0.20-0.90); MONOCYTES PERCENT AUTO 9.8 % (3.3-12.6); NEUTROPHILS ABSOLUTE AUTO 5.67 K/uL (1.0-7.6); NEUTROPHILS PERCENT AUTO 75.4 % (40.0-78.1); PLATELET COUNT,PLT 249 K/uL (130-375); RED BLOOD CELL COUNT 4.28 M/uL (4.14-5.76); WHITE BLOOD CELL COUNT,WBC 7.5 K/uL (3.2-11.0)
[2023-09-20 10:37] LABS: ALANINE AMINOTRANSFERASE,ALT 31 U/L (12-78); ALBUMIN 3.3 g/dL (3.4-5.0); ALKALINE PHOSPHATASE 68 U/L (46-116); ASPARTATE AMNIOTRANSFERASE,AST 39 U/L (15-37); BLOOD UREA NITROGEN,BUN 30 mg/dL (7-18); CALCIUM 9.3 mg/dL (8.5-10.1); CARBON DIOXIDE,CO2 28 mmol/L (21-32); CHLORIDE,CL 105 mmol/L (100-108); CREATININE 1.2 mg/dL (0.8-1.3); EST CRCL DRUG DOSING (CG) 48.29 mL/min; ESTIMATED GFR 62 mL/min (>60); GLUCOSE RANDOM 117 mg/dL (74-106); POTASSIUM,K 3.7 mmol/L (3.6-5.2); PROTEIN TOTAL,TP 6.6 g/dL (6.4-8.2); SODIUM,NA 142 mmol/L (140-148); TROPONIN I HIGH SENSITIVITY 14.4 pg/mL (<=60.3)
[2023-09-20] MEDS: Sodium Chloride 0.9% 1,000 ML IV SCH (11:26)
[2023-09-20 11:36] LABS: APPEARANCE,URINE CLEAR (CLEAR); BILIRUBIN,URINE NEGATIVE (NEGATIVE); COLOR,URINE YELLOW (YELLOW); GLUCOSE,URINE NEGATIVE (NEGATIVE); KETONES,URINE NEGATIVE (NEGATIVE); LEUKOCYTE ESTERASE,URINE NEGATIVE (NEGATIVE); NITRITE,URINE NEGATIVE (NEGATIVE); OCCULT BLOOD,URINE TRACE-INTACT (NEGATIVE); PH,URINE 6.5 (5.0-8.0); PROTEIN,URINE TRACE mg/dL (NEGATIVE)
[2023-09-20] MEDS: Morphine 2 MG/ML SYRINGE IVPUSH ONE (11:41)
[2023-09-20] MEDS: Ondansetron 4 MG/2 ML SDV IVPUSH ONE (11:42)
[2023-09-20 11:45] LABS: AMORPHOUS SEDIMENT,URINE NOT SEEN; BACTERIA,URINE FEW; EPITHELIAL CELLS,URINE FEW; MUCUS,URINE MODERATE; RBC,URINE 0-5 (0-5); WBC,URINE 0-5 (0-5)
== END 2023-09-20 14:09 | disposition home or self-care (01) ==
LOC: JP.ED 08:25
DX: A08.4 Viral intestinal infection, unspecified (principal); I10 Essential (primary) hypertension; Z88.1 Allergy status to other antibiotic agents; Z79.899 Other long term (current) drug therapy
CPT/HCPCS: 36415; 74018; 80053; 81001; 84484; 85025; 93005; 96361; 96374; 96375; 99284; J2270; J2405; J7030